=== PATIENT | male | born 1960 | race Caucasian/White ===

== ENCOUNTER 2017-03-10 16:06 | Emergency (ER) | payer MEDICAID ==
[~2017-03-10] VITALS: Ht 182.9 cm; Wt 81.6 kg
[2017-03-10] MEDS ORDERED: ELIQUIS5 MG PO (16:12)
[2017-03-10] MEDS ORDERED: METOPROLOL TART25 MG ORAL (16:12)
[2017-03-10] MEDS ORDERED: DIGOXIN ELIX0.125 MG GT (16:12)
[2017-03-10 16:39] VITALS: BP 112/60
[2017-03-10 16:42] LABS: EOSINOPHILS % (AUTO) 0.2 % (0.0-3.0); LYMPHOCYTES % (AUTO) 18.2 % (20.0-45.0); MEAN CORPUSCULAR HEMOGLOBIN 38.4 PG (27.0-31.0); MEAN CORPUSCULAR HGB CONC 35.2 G/DL (32.0-36.0); MEAN CORPUSCULAR VOLUME 109 FL (80-99); MEAN PLATELET VOLUME 7.2 FL (6.5-10.1); NEUTROPHILS % (AUTO) 67.6 % (45.0-75.0); PLATELET COUNT 247 K/UL (150-450); RED BLOOD COUNT 4.37 M/UL (4.70-6.10); RED CELL DISTRIBUTION WIDTH 10.9 % (11.6-14.8); WHITE BLOOD COUNT 8.7 K/UL (4.8-10.8)
[2017-03-10 17:00] LABS: ALANINE AMINOTRANSFERASE 113 U/L (3-41); ALBUMIN/GLOBULIN RATIO 1.2 (1.0-2.7); ANION GAP 15 (5-15); ASPARTATE AMINO TRANSFERASE 56 U/L (5-40); CALCIUM 9.3 mg/dL (8.6-10.2); CARBON DIOXIDE 26 mEQ/L (20-30); CHLORIDE 91 mEQ/L (98-107); CREATININE 0.9 mg/dL (0.7-1.2); GLOMERULAR FILTRATION RATE > 60 mL/min (>60); HEMOLYSIS 18; POTASSIUM 4.3 mEQ/L (3.4-4.9); SODIUM 132 mEQ/L (135-145); TOTAL PROTEIN 7.1 g/dL (6.6-8.7); TROPONIN I < 0.30 ng/mL (<=0.30)
[2017-03-10 17:08] LABS: INR 1.1 (0.9-1.1); PROTHROMBIN TIME 11.7 SEC (9.30-11.50)
[2017-03-10 17:10] LABS: CKMB < 1.5 ng/mL (< 6.7)
--- NOTE | 2017-03-10 17:22 | Diagnostic Imaging Report ---
Indication: Chest pain Technique: One view of the chest Comparison: none Findings: There is atelectasis at the right lung base. Lungs and pleural spaces are otherwise clear. There are left upper quadrant surgical clips. Heart size is normal Impression: Right basilar atelectasis No acute process
[2017-03-10] MEDS ORDERED: Acetaminophen 500mg (ES) tab ORAL ONE (17:30)
[2017-03-10 20:00] VITALS: BP 96/67
--- NOTE | 2017-03-10 20:01 | Emergency Room Report ---
History of Present Illness General Chief Complaint: Chest Pain Source: Patient Present Illness HPI This patient has a recent history of DVTs and PEs. He was seen at [facility] [place] last week and admitted. He was discharged from the hospital with a diagnosis of multiple PEs and on Eloquis. The patient states that he developed chest pain today. He states this was the first time he had been up and about. He states that while he was in the hospital he was not even allowed to get out of bed. He denies significant shortness of breath. He denies abdominal pain. He denies fever or chills. He denies nausea or vomiting. He has been achy all over and has a sharp pain that radiates to his neck. He has no other complaints. Allergies: Coded Allergies: No Known Allergies (Unverified , 03/10/17) Patient History Past Medical History: see triage record, HTN, HIV, other - PE, DVT Social History: Denies: alcohol use, drug use, smoking Reviewed Nursing Documentation: PMH: Agreed, PSxH: Agreed Nursing Documentation-PMH Past Medical History: No History, Except For Hx Cardiac Problems: Yes - HIV. Dig for rapid HR Hx Hypertension: Yes Hx COPD: Yes - PE Hx Neurological Problems: Yes - blood clot in left leg Review of Systems All Other Systems: negative except mentioned in HPI Physical Exam Vital Signs Date Time Temp Pulse Resp B/P Pulse Ox O2 Delivery O2 Flow Rate FiO2 03/10/17 16:02 98.2 96 16 112/60 95 Room Air Sp02 EP Interpretation: reviewed, normal General Appearance: no apparent distress, alert, GCS 15, non-toxic Head: normocephalic, atraumatic Eyes: bilateral eye PERRL, bilateral eye normal inspection ENT: hearing grossly normal, normal pharynx, no angioedema, normal voice Neck: full range of motion, supple/symm/no masses Respiratory: chest non-tender, lungs clear, normal breath sounds, speaking full sentences Cardiovascular #1: regular rate, rhythm, no edema Gastrointestinal: normal bowel sounds, non tender, soft, non-distended, no guarding, no rebound Rectal: deferred Musculoskeletal: back normal, gait/station normal, normal range of motion, non- tender Neurologic: alert, oriented x3, responsive, motor strength/tone normal, sensory intact, speech normal Psychiatric: judgement/insight normal, memory normal, mood/affect normal, no suicidal/homicidal ideation Skin: normal color, no rash, warm/dry, well hydrated Medical Decision Making Diagnostic Impression: Primary Impression: Chest pain Additional Impression: Pulmonary emboli ER Course This patient has known PEs. He did have recurrence of his chest pain. Therefore, I did obtain a CT of the chest. This does show multiple peripheral PEs. The patient has arty on treatment for this and this is arty known. There is no evidence of acute coronary syndrome or NE. The patient has a normal troponin. The patient has normal vital signs and there is no right heart strain on a CTA of the chest. Patient is without respiratory distress and has a normal SpO2. I did offer the patient admission to the hospital if he needed pain control, however, he declined this stating that he would rather be at home. At this time, the patient has known pulmonary embolism and is on treatment. No new medical condition is identified. The patient's given close return precautions and followup instructions. Labs Test 03/10/17 16:30 03/10/17 19:02 White Blood Count 8.7 K/UL (4.8-10.8) Red Blood Count 4.37 M/UL (4.70-6.10) Hemoglobin 16.8 G/DL (14.2-18.0) Hematocrit 47.7 % (42.0-52.0) Mean Corpuscular Volume 109 FL (80-99) Mean Corpuscular Hemoglobin 38.4 PG (27.0-31.0) Mean Corpuscular Hemoglobin Concent 35.2 G/DL (32.0-36.0) Red Cell Distribution Width 10.9 % (11.6-14.8) Platelet Count 247 K/UL (150-450) Mean Platelet Volume 7.2 FL (6.5-10.1) Neutrophils (%) (Auto) 67.6 % (45.0-75.0) Lymphocytes (%) (Auto) 18.2 % (20.0-45.0) Monocytes (%) (Auto) 12.0 % (1.0-10.0) Eosinophils (%) (Auto) 0.2 % (0.0-3.0) Basophils (%) (Auto) 2.0 % (0.0-2.0) Prothrombin Time 11.7 SEC (9.30-11.50) Prothromb Time International Ratio 1.1 (0.9-1.1) Activated Partial Thromboplast Time 37 SEC (23-33) Sodium Level 132 mEQ/L (135-145) Potassium Level 4.3 mEQ/L (3.4-4.9) Chloride Level 91 mEQ/L (98-107) Carbon Dioxide Level 26 mEQ/L (20-30) Anion Gap 15 (5-15) Blood Urea Nitrogen 19 mg/dL (7-23) Creatinine 0.9 mg/dL (0.7-1.2) Estimat Glomerular Filtration Rate > 60 mL/min (>60) Glucose Level 98 mg/dL (74-106) Calcium Level 9.3 mg/dL (8.6-10.2) Total Bilirubin 0.3 mg/dL (0.0-1.2) Aspartate Amino Transf (AST/SGOT) 56 U/L (5-40) Alanine Aminotransferase (ALT/SGPT) 113 U/L (3-41) Alkaline Phosphatase 44 U/L (40-129) Total Creatine Kinase 16 U/L (38-174) Creatine Kinase MB < 1.5 ng/mL (< 6.7) Creatine Kinase MB Relative Index Troponin I < 0.30 ng/mL (<=0.30) Total Protein 7.1 g/dL (6.6-8.7) Albumin 3.9 g/dL (3.5-5.2) Globulin 3.2 g/dL Albumin/Globulin Ratio 1.2 (1.0-2.7) EKG Diagnostic Results Rate: normal ST Segments: no acute changes Other Impression SR w/ shortened WA interval Rhythm Strip Diag. Results EP Interpretation: yes Rate: 90's Rhythm: NSR, no PVC's, no ectopy Chest X-Ray Diagnostic Results EP Interpretation: Yes Findings: no consolidation, no effusion, no pneumothorax, no acute cardiopulmonary disease Number of Views: 1 CT/MRI/US Diagnostic Results CT/MRI/US Diagnostic Results : Imaging Test Ordered: CTA chest Impression Bilateral PE with in the right upper lobe, right lower lobe and left upper lobe and lower lobe. See official report. Last Vital Signs Date Time Temp Pulse Resp B/P Pulse Ox O2 Delivery O2 Flow Rate FiO2 03/10/17 18:36 98.3 03/10/17 16:39 95 16 112/60 95 Room Air Disposition: HOME, SELF-CARE Condition: Stable Referrals: NON PHYSICIAN (PCP) MADDIE VOGT D.O. Mar 10, 2017 20:01
[2017-03-10] MEDS ORDERED: ACETAMINOPHEN-1 EAC1 ORAL (20:02)
[2017-03-10 20:03] LABS: APPEARANCE,URINE CLEAR; KETONES,URINE NEGATIVE (NEGATIVE); LEUKOCYTE ESTERASE ,URINE NEGATIVE (NEGATIVE); NITRITE,URINE NEGATIVE (NEGATIVE); PH,URINE 5 (4.5-8.0); PROTEIN,URINE NEGATIVE (NEGATIVE); UROBILINOGEN,URINE NORMAL MG/DL (0.0-1.0)
[2017-03-10 20:10] VITALS: BP 96/67
[2017-03-10 20:14] LABS: BACTERIA,URINE OCCASIONAL /HPF; RBC,URINE 0-2 /HPF (0 - 0); WBC,URINE 0-2 /HPF (0 - 0)
--- NOTE | 2017-03-11 09:50 | Diagnostic Imaging Report ---
Indications: Chest pain Technique: Continuous helical CT imaging of the thorax was performed with automatic exposure control, following bolus intravenous administration of nonionic iodine contrast, on a Siemens sensation [address] scanner. Axial images reconstructed at 3 mm slice thickness and 1.5 mm interval. Coronal and sagittal images were reconstructed at 3 mm slice thickness. Coronal and sagittal two-dimensional maximum intensity projection and three-dimensional volume-rendered images were reconstructed on a stand alone workstation. CTDI volume(s): 13, 25, 23 mGy Total DLP: 759 mGy-cm Findings: Comparison: None Multiple small low-attenuation filling defects are present throughout multiple first and second order upper and lower lobe branches of both pulmonary arteries. Central pulmonary arteries patent, well opacified, normal caliber. Right ventricle nonenlarged. Heart overall normal size. Minimal pericardial fluid/thickening. Thoracic aorta and great vessels are patent and well-opacified without significant plaquing, normal in caliber and configuration. No evidence of aneurysm, dissection, or leak. No mediastinal or hilar enlarged lymph nodes, other abnormal masses or fluid collections. Irregular pleural-based linear densities in both lung bases right greater than left. No pleural abnormalities. Chest wall soft tissues nonfocal. Liver enlarged, diffusely decreased attenuation, incompletely imaged. Multiple metallic densities in abdominal left upper quadrant. Normal-appearing spleen not identified. 6 cm circumscribed soft tissue mass in abdominal left upper quadrant adjacent to surgical clips, incompletely imaged. Disc marginal osteophytes scattered throughout thoracic spine. Impression: Bilateral pulmonary emboli. No evidence of acute right heart strain. Pulmonary bibasal subsegmental atelectasis, right greater than left Minimal pericardial effusion versus thickening, nonspecific Hepatomegaly with steatosis Suggestion of prior splenectomy. Adjacent mass in left upper quadrant is of uncertain significance and could represent residual spleen versus exophytic renal mass. Dedicated contrast-enhanced CT scan of the abdomen and pelvis recommended for further evaluation. Degenerative spondylosis This correlates with Dr. Urrutia's preliminary report. Critical results discussed by Dr. Urrutia with Dr. Gomes, physician, by telephone 03/10/2017 [id number]
--- NOTE | 2017-03-14 22:37 | Cardiology Report ---
APPROVED REPORT EKG Measurement Heart [id number] Sinus rhythm with short HI with premature supraventricular complexes Otherwise normal ECG
== END 2017-03-10 20:10 | disposition home or self-care (01) ==
LOC: EDBD 16:06 → EMR 16:56
DX: I26.99 Other pulmonary embolism without acute cor pulmonale (principal); R07.9 Chest pain, unspecified; I10 Essential (primary) hypertension; Z86.718 Personal history of other venous thrombosis and embolism; Z79.01 Long term (current) use of anticoagulants
CPT/HCPCS: 36415; 71010; 71275; 80053; 80300; 81003; 82550; 82553; 84484; 85025; 85610; 85730; 93005; 96374; 99284; Q9967

== ENCOUNTER 2017-03-18 14:22 | Emergency (ER) | payer MEDICAID ==
[~2017-03-18] VITALS: Ht 182.9 cm; Wt 77.6 kg
[~2017-03-18 14:22] MED LIST: ACETAMINOPHEN-1 EAC1 ORAL; DIGOXIN ELIX0.125 MG GT; ELIQUIS5 MG PO; METOPROLOL TART25 MG ORAL
[2017-03-18 15:02] VITALS: BP 120/74
--- NOTE | 2017-03-18 15:14 | Emergency Room Report ---
History of Present Illness General Chief Complaint: Syncope Source: Patient Present Illness HPI 56-year-old male presents ED for evaluation. Patient states that he was at his PMD office today for check up. When he left the office he felt dizzy and had to catch himself against the wall. No LOC. Patient states that he's been feeling sick and nauseous ever since he's been placed on Eliqus. Patient was admitted to [facility] last week for PE. Was on heparin drip. He was discharged on Eliquis. Patient states that he's been compliant with the medication but he has been feeling nauseous and weak since starting the medication. Patient was seen at PMD office today and was prescribed warfarin to take instead of Eliquis. Patient denies any chest pain or shortness of breath. Denies any blood in stool. No other aggravating or relieving factors. Denies any other associated symptoms Allergies: Coded Allergies: No Known Allergies (Unverified , 03/10/17) Patient History Past Medical History: HTN, other - PE Past Surgical History: none Pertinent Family History: none Social History: Denies: alcohol use, drug use, smoking Immunizations: UTD Reviewed Nursing Documentation: PMH: Agreed, PSxH: Agreed Nursing Documentation-PMH Past Medical History: No History, Except For Hx Cardiac Problems: Yes - HIV Hx Hypertension: Yes Hx COPD: Yes - PE Hx Neurological Problems: Yes - blood clot in left leg Review of Systems All Other Systems: negative except mentioned in HPI Physical Exam Vital Signs Date Time Temp Pulse Resp B/P Pulse Ox O2 Delivery O2 Flow Rate FiO2 03/18/17 14:29 98.2 99 16 133/84 100 Room Air Sp02 EP Interpretation: reviewed, normal General Appearance: no apparent distress, alert, GCS 15, non-toxic Head: normocephalic, atraumatic Eyes: bilateral eye PERRL, bilateral eye normal inspection ENT: hearing grossly normal, normal pharynx, no angioedema, normal voice Neck: full range of motion, supple/symm/no masses Respiratory: chest non-tender, lungs clear, normal breath sounds, speaking full sentences Cardiovascular #1: regular rate, rhythm, no edema Cardiovascular #2: 2+ carotid (R), 2+ carotid (L), 2+ radial (R), 2+ radial (L) , 2+ dorsalis pedis (R), 2+ dorsalis pedis (L) Gastrointestinal: normal bowel sounds, non tender, soft, non-distended, no guarding, no rebound Rectal: deferred Genitourinary: normal inspection, no CVA tenderness Musculoskeletal: back normal, gait/station normal, normal range of motion, non- tender Neurologic: alert, oriented x3, responsive, motor strength/tone normal, sensory intact, speech normal Psychiatric: judgement/insight normal, memory normal, mood/affect normal, no suicidal/homicidal ideation Reflexes: 3+ bicep (R), 3+ bicep (L), 3+ tricep (R), 3+ tricep (L), 3+ knee (R) , 3+ knee (L) Skin: normal color, no rash, warm/dry, well hydrated Lymphatic: no adenopathy Medical Decision Making Diagnostic Impression: Primary Impression: Dizziness ER Course Hospital Course 56-year-old male presents ED complaining of dizziness. Recently prescribed Eliquis after diagnosed for PE Differential diagnoses include: Rib fracture, NE/unstable angina, contusion, muscle strain Clinical course Patient placed on stretcher. After initial history and physical I ordered labs , EKG, zofran, IVFS labs reviewed- all electrolytes normal, troponins negative, no leukocytosis, hemoglobin/hematocrit stable, coags ok Reassurance given to patient. No chest pain or shortness of breath suggestive of PE at this time. Patient will stop the Eliquis and was prescribed Coumadin by PMD. Patient instructed to start Coumadin. Instructed on weekly INR checks I. I feel this is a highly complex case requiring extensive working including EKG/Rhythm strip, Xray/CT/US, Blood/urine lab work, repeat exams while in ED, and administration of strong opiates/narcotics for pain control, admission to hospital or close patient follow up. Diagnosis - dizziness Stable and discharged to home with Rx Zofran. stop eliquis. start coumadin. weekly INR checks. Instructed to followup with PMD. Return to ED if symptoms recur or worsen Labs Test 03/18/17 14:50 White Blood Count 8.7 K/UL (4.8-10.8) Red Blood Count 3.58 M/UL (4.70-6.10) Hemoglobin 13.3 G/DL (14.2-18.0) Hematocrit 38.4 % (42.0-52.0) Mean Corpuscular Volume 107 FL (80-99) Mean Corpuscular Hemoglobin 37.2 PG (27.0-31.0) Mean Corpuscular Hemoglobin Concent 34.6 G/DL (32.0-36.0) Red Cell Distribution Width 11.4 % (11.6-14.8) Platelet Count 362 K/UL (150-450) Mean Platelet Volume 6.8 FL (6.5-10.1) Neutrophils (%) (Auto) 55.0 % (45.0-75.0) Lymphocytes (%) (Auto) 33.0 % (20.0-45.0) Monocytes (%) (Auto) 10.8 % (1.0-10.0) Eosinophils (%) (Auto) 0.3 % (0.0-3.0) Basophils (%) (Auto) 0.9 % (0.0-2.0) Prothrombin Time 10.7 SEC (9.30-11.50) Prothromb Time International Ratio 1.1 (0.9-1.1) Activated Partial Thromboplast Time 27 SEC (23-33) Sodium Level 141 mEQ/L (135-145) Potassium Level 3.6 mEQ/L (3.4-4.9) Chloride Level 100 mEQ/L (98-107) Carbon Dioxide Level 24 mEQ/L (20-30) Anion Gap 17 (5-15) Blood Urea Nitrogen 12 mg/dL (7-23) Creatinine 0.7 mg/dL (0.7-1.2) Estimat Glomerular Filtration Rate > 60 mL/min (>60) Glucose Level 140 mg/dL (74-106) Calcium Level 9.6 mg/dL (8.6-10.2) Total Bilirubin 0.4 mg/dL (0.0-1.2) Aspartate Amino Transf (AST/SGOT) 29 U/L (5-40) Alanine Aminotransferase (ALT/SGPT) 69 U/L (3-41) Alkaline Phosphatase 44 U/L (40-129) Total Creatine Kinase 29 U/L (38-174) Creatine Kinase MB < 1.5 ng/mL (< 6.7) Creatine Kinase MB Relative Index Troponin I < 0.30 ng/mL (<=0.30) Total Protein 6.8 g/dL (6.6-8.7) Albumin 3.8 g/dL (3.5-5.2) Globulin 3.0 g/dL Albumin/Globulin Ratio 1.2 (1.0-2.7) Lipase 29 U/L (< 60) EKG Diagnostic Results Rate: normal Rhythm: NSR ST Segments: no acute changes ASA given to the pt in ED: No Rhythm Strip Diag. Results EP Interpretation: yes Rhythm: NSR, no PVC's, no ectopy Last Vital Signs Date Time Temp Pulse Resp B/P Pulse Ox O2 Delivery O2 Flow Rate FiO2 03/18/17 15:02 98.2 89 16 120/74 100 Room Air Status: improved Disposition: HOME, SELF-CARE Condition: Stable Scripts Ondansetron Odt* (ZOFRAN ODT*) 4 Mg Tab.rapdis 4 MG ORAL Q6H Y for Nausea & Vomiting, #30 TAB 0 Refills Prov: SIXTO BRAY M.D. 03/18/17 Referrals: NON PHYSICIAN (PCP) SIXTO BRAY M.D. Mar 18, 2017 15:14
[2017-03-18 15:18] LABS: BASOPHILS % (AUTO) 0.9 % (0.0-2.0); EOSINOPHILS % (AUTO) 0.3 % (0.0-3.0); MEAN CORPUSCULAR HEMOGLOBIN 37.2 PG (27.0-31.0); MEAN CORPUSCULAR HGB CONC 34.6 G/DL (32.0-36.0); MEAN CORPUSCULAR VOLUME 107 FL (80-99); MEAN PLATELET VOLUME 6.8 FL (6.5-10.1); MONOCYTES % (AUTO) 10.8 % (1.0-10.0); PLATELET COUNT 362 K/UL (150-450); RED BLOOD COUNT 3.58 M/UL (4.70-6.10); RED CELL DISTRIBUTION WIDTH 11.4 % (11.6-14.8); WHITE BLOOD COUNT 8.7 K/UL (4.8-10.8)
[2017-03-18 15:23] LABS: INR 1.1 (0.9-1.1); PROTHROMBIN TIME 10.7 SEC (9.30-11.50)
[2017-03-18 15:25] LABS: ALANINE AMINOTRANSFERASE 69 U/L (3-41); ALBUMIN/GLOBULIN RATIO 1.2 (1.0-2.7); ANION GAP 17 (5-15); ASPARTATE AMINO TRANSFERASE 29 U/L (5-40); CALCIUM 9.6 mg/dL (8.6-10.2); CARBON DIOXIDE 24 mEQ/L (20-30); CHLORIDE 100 mEQ/L (98-107); CREATININE 0.7 mg/dL (0.7-1.2); GLOMERULAR FILTRATION RATE > 60 mL/min (>60); HEMOLYSIS 5; LIPASE 29 U/L (< 60); POTASSIUM 3.6 mEQ/L (3.4-4.9); SODIUM 141 mEQ/L (135-145); TOTAL PROTEIN 6.8 g/dL (6.6-8.7); TROPONIN I < 0.30 ng/mL (<=0.30)
[2017-03-18 15:36] LABS: CKMB < 1.5 ng/mL (< 6.7)
[2017-03-18] MEDS ORDERED: ZOFRAN ODT4 MG ORAL (16:58)
[2017-03-18 17:31] VITALS: BP 121/72
[2017-03-18 17:32] VITALS: BP 121/72
== END 2017-03-18 17:34 | disposition home or self-care (01) ==
LOC: EMR 14:43
DX: R42 Dizziness and giddiness (principal); R11.0 Nausea; I10 Essential (primary) hypertension; Z86.711 Personal history of pulmonary embolism; Z79.01 Long term (current) use of anticoagulants; J44.9 Chronic obstructive pulmonary disease, unspecified
CPT/HCPCS: 36415; 80053; 82550; 82553; 83690; 84484; 85025; 85610; 85730; 93005; 96374; 96375; 99284; J2405

== ENCOUNTER 2017-03-29 17:10 | Inpatient (IN) | payer MEDICAID ==
[~2017-03-29] VITALS: Ht 180.3 cm; Wt 77.1 kg
[~2017-03-29 17:10] MED LIST changes: +ZOFRAN ODT4 MG ORAL
[2017-03-29 17:48] VITALS: BP 129/80
[2017-03-29 18:08] LABS: BASOPHILS % (AUTO) 1.2 % (0.0-2.0); EOSINOPHILS % (AUTO) 0.2 % (0.0-3.0); LYMPHOCYTES % (AUTO) 21.1 % (20.0-45.0); MEAN CORPUSCULAR HEMOGLOBIN 39.3 PG (27.0-31.0); MEAN CORPUSCULAR HGB CONC 36.7 G/DL (32.0-36.0); MEAN CORPUSCULAR VOLUME 107 FL (80-99); MEAN PLATELET VOLUME 7.4 FL (6.5-10.1); MONOCYTES % (AUTO) 13.8 % (1.0-10.0); NEUTROPHILS % (AUTO) 63.7 % (45.0-75.0); PLATELET COUNT 309 K/UL (150-450); RED BLOOD COUNT 3.52 M/UL (4.70-6.10); RED CELL DISTRIBUTION WIDTH 11.3 % (11.6-14.8); WHITE BLOOD COUNT 13.5 K/UL (4.8-10.8)
[2017-03-29 18:21] LABS: INR 1.5 (0.9-1.1); PROTHROMBIN TIME 15.7 SEC (9.30-11.50)
[2017-03-29 18:25] LABS: ALANINE AMINOTRANSFERASE 42 U/L (3-41); ALBUMIN/GLOBULIN RATIO 1.1 (1.0-2.7); ANION GAP 16 (5-15); ASPARTATE AMINO TRANSFERASE 16 U/L (5-40); CALCIUM 9.6 mg/dL (8.6-10.2); CARBON DIOXIDE 24 mEQ/L (20-30); CHLORIDE 95 mEQ/L (98-107); CREATININE 0.7 mg/dL (0.7-1.2); GLOMERULAR FILTRATION RATE > 60 mL/min (>60); HEMOLYSIS 7; POTASSIUM 3.8 mEQ/L (3.4-4.9); SODIUM 135 mEQ/L (135-145); TOTAL PROTEIN 7.6 g/dL (6.6-8.7); TROPONIN I < 0.30 ng/mL (<=0.30)
[2017-03-29 18:35] LABS: CKMB < 1.5 ng/mL (< 6.7)
[2017-03-29 19:25] VITALS: BP 128/82
[2017-03-29] MEDS ORDERED: WARFARIN SODIUM5 MG ORAL (20:08)
[2017-03-29] MEDS ORDERED: NORVIR100 MG ORAL (20:14)
[2017-03-29] MEDS ORDERED: Morphine Sulfate 4mg/ml Inj IVP ONE (20:15)
[2017-03-29] MEDS ORDERED: PREZISTA800 MG ORAL (20:16)
[2017-03-29] MEDS ORDERED: EPZICOM1 TAB ORAL (20:17)
[2017-03-29] MEDS ORDERED: ACETAMINOPHEN325 M1 ORAL (20:18)
[2017-03-29] MEDS ORDERED: Heparin 5000 units/ml inj IV ONE ×2 (20:45→21:15)
[2017-03-29] MEDS ORDERED: Heparin 25,000u/D5W 500ml 500 ML IV SCH ×3 (20:45→22:00)
[2017-03-29] MEDS ORDERED: Miralax 17gm pkt ORAL PRN (21:30)
[2017-03-29] MEDS ORDERED: LORazepam Inj 2mg/ml 1ml IV PRN (21:30)
[2017-03-29] MEDS ORDERED: Zolpidem 5mg tab ORAL PRN (21:30)
[2017-03-29] MEDS ORDERED: Mylanta II UD 30ml ORAL PRN (21:30)
[2017-03-29 21:34] VITALS: BP 132/87
--- NOTE | 2017-03-29 22:08 | Emergency Room Report ---
History of Present Illness General Chief Complaint: Dyspnea/Respdistress Source: Patient Present Illness HPI 56-year-old male referred to ED for evaluation. Patient is complaining of chest pain or shortness of breath since last night. Pain is sharp. Bilateral 10. mid-chest. Nonradiating. Notes shortness of breath. Denies fevers or chills or cough. Patient was recently diagnosed with PE and was hospitalized. Patient was initially on Eliquis but was unable to tolerate the medication. Patient was switched to Coumadin. Patient states his last INR check was 1.0. States he is compliant with the medication. Patient also notes increased swelling in both legs. No other aggravating or relieving factors. Denies any other associated symptioms Allergies: Coded Allergies: No Known Allergies (Unverified , 03/10/17) Patient History Past Medical History: HTN, HIV, other - PE, DVT Past Surgical History: none Pertinent Family History: none Social History: Denies: alcohol use, drug use, smoking Immunizations: UTD Reviewed Nursing Documentation: PMH: Agreed Nursing Documentation-PMH Hx Cardiac Problems: Yes - HIV Hx Hypertension: Yes Hx COPD: Yes - PE Hx Neurological Problems: Yes - blood clot in left leg Review of Systems All Other Systems: negative except mentioned in HPI Physical Exam Vital Signs Date Time Temp Pulse Resp B/P Pulse Ox O2 Delivery O2 Flow Rate FiO2 03/29/17 17:19 98.2 119 20 129/81 94 Room Air Sp02 EP Interpretation: reviewed, normal General Appearance: no apparent distress, alert, GCS 15, non-toxic Head: normocephalic, atraumatic Eyes: bilateral eye PERRL, bilateral eye normal inspection ENT: hearing grossly normal, normal pharynx, no angioedema, normal voice Neck: full range of motion, supple/symm/no masses Respiratory: chest non-tender, lungs clear, normal breath sounds, speaking full sentences Cardiovascular #1: regular rate, rhythm, no edema Cardiovascular #2: 2+ carotid (R), 2+ carotid (L), 2+ radial (R), 2+ radial (L) , 2+ dorsalis pedis (R), 2+ dorsalis pedis (L) Gastrointestinal: normal bowel sounds, non tender, soft, non-distended, no guarding, no rebound Rectal: deferred Genitourinary: normal inspection, no CVA tenderness Musculoskeletal: back normal, gait/station normal, normal range of motion, non- tender, calf tenderness - bilateral Neurologic: alert, oriented x3, responsive, motor strength/tone normal, sensory intact, speech normal Psychiatric: judgement/insight normal, memory normal, mood/affect normal, no suicidal/homicidal ideation Reflexes: 3+ bicep (R), 3+ bicep (L), 3+ tricep (R), 3+ tricep (L), 3+ knee (R) , 3+ knee (L) Skin: normal color, no rash, warm/dry, well hydrated Lymphatic: no adenopathy Medical Decision Making Diagnostic Impression: Primary Impression: DVT (deep venous thrombosis) Qualified Codes: I82.403 - Acute embolism and thrombosis of unspecified deep veins of lower extremity, bilateral Additional Impression: Pulmonary embolus, right ER Course Hospital Course 56-year-old male presents ED complaining of SOB. h/o PE Differential diagnoses include: ND/unstable angina, PE, bronchitis, asthma Clinical course Patient placed on stretcher. on cardiac surgeon. After initial history and physical I ordered labs, EKG, dopplers, CTA Chest labs reviewed- noted leukocytosis, hemoglobin/hematocrit stable, electrolytes ok , troponins negative, d-dimer elevated EKG - sinus tachycardia dopplers - bilateral DVTs noted CT chest - increased PE in RLL, elsewhere resolved Heparin bolus, drip given. Case discussed with Dr. Bradley and he agreed to accept the patient to his service for further care and support I. I feel this is a highly complex case requiring extensive working including EKG/Rhythm strip, Xray/CT/US, Blood/urine lab work, repeat exams while in ED, and administration of strong opiates/narcotics for pain control, admission to hospital or close patient follow up. Diagnosis - PE, DVT admitted to telemetry in serious condition Labs Test 03/29/17 17:54 White Blood Count 13.5 K/UL (4.8-10.8) Red Blood Count 3.52 M/UL (4.70-6.10) Hemoglobin 13.8 G/DL (14.2-18.0) Hematocrit 37.7 % (42.0-52.0) Mean Corpuscular Volume 107 FL (80-99) Mean Corpuscular Hemoglobin 39.3 PG (27.0-31.0) Mean Corpuscular Hemoglobin Concent 36.7 G/DL (32.0-36.0) Red Cell Distribution Width 11.3 % (11.6-14.8) Platelet Count 309 K/UL (150-450) Mean Platelet Volume 7.4 FL (6.5-10.1) Neutrophils (%) (Auto) 63.7 % (45.0-75.0) Lymphocytes (%) (Auto) 21.1 % (20.0-45.0) Monocytes (%) (Auto) 13.8 % (1.0-10.0) Eosinophils (%) (Auto) 0.2 % (0.0-3.0) Basophils (%) (Auto) 1.2 % (0.0-2.0) Prothrombin Time 15.7 SEC (9.30-11.50) Prothromb Time International Ratio 1.5 (0.9-1.1) Activated Partial Thromboplast Time 34 SEC (23-33) D-Dimer 1905 ng/mL (<500) Sodium Level 135 mEQ/L (135-145) Potassium Level 3.8 mEQ/L (3.4-4.9) Chloride Level 95 mEQ/L (98-107) Carbon Dioxide Level 24 mEQ/L (20-30) Anion Gap 16 (5-15) Blood Urea Nitrogen 12 mg/dL (7-23) Creatinine 0.7 mg/dL (0.7-1.2) Estimat Glomerular Filtration Rate > 60 mL/min (>60) Glucose Level 108 mg/dL (74-106) Calcium Level 9.6 mg/dL (8.6-10.2) Total Bilirubin 0.4 mg/dL (0.0-1.2) Aspartate Amino Transf (AST/SGOT) 16 U/L (5-40) Alanine Aminotransferase (ALT/SGPT) 42 U/L (3-41) Alkaline Phosphatase 43 U/L (40-129) Total Creatine Kinase 21 U/L (38-174) Creatine Kinase MB < 1.5 ng/mL (< 6.7) Creatine Kinase MB Relative Index 7.1 Troponin I < 0.30 ng/mL (<=0.30) Total Protein 7.6 g/dL (6.6-8.7) Albumin 4.0 g/dL (3.5-5.2) Globulin 3.6 g/dL Albumin/Globulin Ratio 1.1 (1.0-2.7) EKG Diagnostic Results Rate: tachycardiac Rhythm: NSR ST Segments: no acute changes ASA given to the pt in ED: No Rhythm Strip Diag. Results EP Interpretation: yes Rhythm: NSR, no PVC's, no ectopy CT/MRI/US Diagnostic Results CT/MRI/US Diagnostic Results : Imaging Test Ordered: CTA Chest, bilateral doppler Impression CTA CHest - increased PE in RLL. resolved elsewhere when compared to 03/10/17 CTA bilateral doppler US - bilateral DVT Last Vital Signs Date Time Temp Pulse Resp B/P Pulse Ox O2 Delivery O2 Flow Rate FiO2 03/29/17 20:57 98.0 03/29/17 19:25 100 25 128/82 95 Room Air Status: improved Disposition: ADMITTED INPATIENT Condition: Serious Referrals: [facility],REFERRING (PCP) SIXTO BRAY M.D. March 29, 2017 22:08
[2017-03-30] VITALS: BP 144/80
[2017-03-30] MEDS: Morphine Sulfate 2mg/ml Inj IVP PRN ×5 (02:08→23:08)
[2017-03-30 04:00] VITALS: BP 120/78
[2017-03-30 07:04] LABS: BASOPHILS % (AUTO) 0.6 % (0.0-2.0); EOSINOPHILS % (AUTO) 0.5 % (0.0-3.0); LYMPHOCYTES % (AUTO) 22.4 % (20.0-45.0); MEAN CORPUSCULAR HEMOGLOBIN 35.8 PG (27.0-31.0); MEAN CORPUSCULAR HGB CONC 34.1 G/DL (32.0-36.0); MEAN CORPUSCULAR VOLUME 105 FL (80-99); MEAN PLATELET VOLUME 7.9 FL (6.5-10.1); MONOCYTES % (AUTO) 13.2 % (1.0-10.0); NEUTROPHILS % (AUTO) 63.1 % (45.0-75.0); PLATELET COUNT 340 K/UL (150-450); RED BLOOD COUNT 3.52 M/UL (4.70-6.10); RED CELL DISTRIBUTION WIDTH 11.2 % (11.6-14.8); WHITE BLOOD COUNT 10.3 K/UL (4.8-10.8)
[2017-03-30 07:39] LABS: ALANINE AMINOTRANSFERASE 36 U/L (3-41); ANION GAP 15 (5-15); ASPARTATE AMINO TRANSFERASE 16 U/L (5-40); CALCIUM 9.5 mg/dL (8.6-10.2); CARBON DIOXIDE 26 mEQ/L (20-30); CHLORIDE 97 mEQ/L (98-107); CHOLESTEROL 284 mg/dL (< 200); CHOLESTEROL/HDL RATIO 4.4 (3.3-4.4); CREATININE 0.6 mg/dL (0.7-1.2); GLOMERULAR FILTRATION RATE > 60 mL/min (>60); HEMOLYSIS 2; LDL CHOLESTEROL (CALC.) 196 mg/dL (60-99); POTASSIUM 3.9 mEQ/L (3.4-4.9); SODIUM 138 mEQ/L (135-145); TOTAL PROTEIN 7.1 g/dL (6.6-8.7)
[2017-03-30] MEDS: Heparin 25,000u/D5W 500ml 500 ML IV SCH ×3 (07:42→14:52)
[2017-03-30] MEDS ORDERED: Heparin 5000 units/ml inj IV ONE (08:00)
[2017-03-30 08:15] VITALS: BP 131/81
[2017-03-30] MEDS ORDERED: Pneumococcal Vaccine 25mcg/0.5ml IM ONE (10:00)
[2017-03-30 12:18] VITALS: BP 120/74
--- NOTE | 2017-03-30 13:42 | History and Physical ---
History of Present Illness General Date patient seen: March 30, 2017 Reason for Hospitalization: Dyspnea/Respdistress Present Illness HPI 56-year-old male with hx of HIV recent DVT referred to ED for evaluation of chest pain and shortness of breath since last night. Patient was recently diagnosed with PE and was hospitalized. Patient was initially on Eliquis but was unable to tolerate the medication. Patient was switched to Coumadin. Patient states his last INR check was 1.0. States he is compliant with the medication. Patient also notes increased swelling in both legs. Allergies: Coded Allergies: No Known Allergies (Unverified , 03/10/17) Medication History Scheduled Darunavir Ethanolate (Prezista), 800 MG ORAL QPM, (Reported) Epzicom (Epzicom Tablet), 1 TAB ORAL QPM, (Reported) Ritonavir* (Norvir*), 100 MG ORAL QPM, (Reported) Warfarin Sod* (Warfarin Sod*), 5 MG ORAL DAILY, (Reported) Scheduled PRN Acetaminophen With Codeine (T#3) (Tylenol #3 Tab*), 1 TAB ORAL Q8H PRN for For Pain Acetaminophen* (Acetaminophen 325MG Tablet*), 325 MG ORAL Q4H PRN for For Pain, (Reported) Discontinued Medications Apixaban (Eliquis), 5 MG PO TWICE A DAY, (Reported) Discontinued Reason: Pt stopped taking med Digoxin (Digoxin), 0.125 MG GT DAILY, (Reported) Discontinued Reason: Pt stopped taking med Metoprolol Tartrate* (Metoprolol Tartrate*), 25 MG ORAL EVERY 12 HOURS, ( Reported) Discontinued Reason: Pt stopped taking med Ondansetron Odt* (Zofran Odt*), 4 MG ORAL Q6H PRN for Nausea & Vomiting Discontinued Reason: Pt stopped taking med Patient History Healthcare decision maker pt alert and oriented x4 Resuscitation status Full Code Advanced Directive on File Past Medical/Surgical History Past Medical/Surgical History: (1) DVT (deep venous thrombosis) (2) Pulmonary embolus, right Review of Systems All Other Systems: negative except mentioned in HPI Physical Exam General Appearance: WD/WN Lines, tubes and drains: peripheral HEENT: normocephalic, atraumatic Neck: non-tender, normal alignment Respiratory/Chest: chest wall non-tender, lungs clear Cardiovascular/Chest: normal peripheral pulses Abdomen: normal bowel sounds Genitourinary/Rectal: normal genital exam Extremities: normal range of motion Skin Exam: normal pigmentation 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 Last 24 Hour Vital Signs Date Time Temp Pulse Resp B/P Pulse Ox O2 Delivery O2 Flow Rate FiO2 03/30/17 12:18 97.7 95 20 120/74 96 Nasal Cannula 2.0 03/30/17 12:00 107 03/30/17 08:15 98.1 100 20 131/81 96 Room Air 2.0 03/30/17 08:00 97 03/30/17 04:00 97.8 91 19 120/78 93 Room Air 03/30/17 04:00 89 03/30/17 00:00 93 03/30/17 00:00 98.1 102 20 144/80 96 Room Air 03/29/17 21:43 98.0 104 25 132/87 95 Room Air 03/29/17 21:34 98.0 104 25 132/87 95 Room Air 03/29/17 20:57 98.0 03/29/17 19:25 98.0 100 25 128/82 95 Room Air 03/29/17 17:48 105 31 Room Air 03/29/17 17:48 98.0 105 31 129/80 96 Room Air 03/29/17 17:19 98.2 119 20 129/81 94 Room Air Intake and Output 03/29/17 03/30/17 19:00 07:00 Intake Total 0 ml 100 ml Output Total 350 ml Balance 0 ml -250 ml Intake Oral 0 ml 100 ml Output Urine Total 350 ml # Voids 1 Laboratory Tests Test 03/29/17 17:54 03/29/17 23:10 03/30/17 06:05 White Blood Count 13.5 K/UL (4.8-10.8) H 10.3 K/UL (4.8-10.8) Red Blood Count 3.52 M/UL (4.70-6.10) L 3.52 M/UL (4.70-6.10) L Hemoglobin 13.8 G/DL (14.2-18.0) L 12.6 G/DL (14.2-18.0) L Hematocrit 37.7 % (42.0-52.0) L 37.0 % (42.0-52.0) L Mean Corpuscular Volume 107 FL (80-99) H 105 FL (80-99) H Mean Corpuscular Hemoglobin 39.3 PG (27.0-31.0) H 35.8 PG (27.0-31.0) H Mean Corpuscular Hemoglobin Concent 36.7 G/DL (32.0-36.0) H 34.1 G/DL (32.0-36.0) Red Cell Distribution Width 11.3 % (11.6-14.8) L 11.2 % (11.6-14.8) L Platelet Count 309 K/UL (150-450) 340 K/UL (150-450) Mean Platelet Volume 7.4 FL (6.5-10.1) 7.9 FL (6.5-10.1) Neutrophils (%) (Auto) 63.7 % (45.0-75.0) 63.1 % (45.0-75.0) Lymphocytes (%) (Auto) 21.1 % (20.0-45.0) 22.4 % (20.0-45.0) Monocytes (%) (Auto) 13.8 % (1.0-10.0) H 13.2 % (1.0-10.0) H Eosinophils (%) (Auto) 0.2 % (0.0-3.0) 0.5 % (0.0-3.0) Basophils (%) (Auto) 1.2 % (0.0-2.0) 0.6 % (0.0-2.0) Prothrombin Time 15.7 SEC (9.30-11.50) H Prothromb Time International Ratio 1.5 (0.9-1.1) H Activated Partial Thromboplast Time 34 SEC (23-33) H 61 SEC (23-33) H 50 SEC (23-33) H D-Dimer 1905 ng/mL (<500) H Sodium Level 135 mEQ/L (135-145) 138 mEQ/L (135-145) Potassium Level 3.8 mEQ/L (3.4-4.9) 3.9 mEQ/L (3.4-4.9) Chloride Level 95 mEQ/L (98-107) L 97 mEQ/L (98-107) L Carbon Dioxide Level 24 mEQ/L (20-30) 26 mEQ/L (20-30) Anion Gap 16 (5-15) H 15 (5-15) Blood Urea Nitrogen 12 mg/dL (7-23) 10 mg/dL (7-23) Creatinine 0.7 mg/dL (0.7-1.2) 0.6 mg/dL (0.7-1.2) L Estimat Glomerular Filtration Rate > 60 mL/min (>60) > 60 mL/min (>60) Glucose Level 108 mg/dL (74-106) H 109 mg/dL (74-106) H Calcium Level 9.6 mg/dL (8.6-10.2) 9.5 mg/dL (8.6-10.2) Total Bilirubin 0.4 mg/dL (0.0-1.2) 0.5 mg/dL (0.0-1.2) Aspartate Amino Transf (AST/SGOT) 16 U/L (5-40) 16 U/L (5-40) Alanine Aminotransferase (ALT/SGPT) 42 U/L (3-41) H 36 U/L (3-41) Alkaline Phosphatase 43 U/L (40-129) 43 U/L (40-129) Total Creatine Kinase 21 U/L (38-174) L Creatine Kinase MB < 1.5 ng/mL (< 6.7) Creatine Kinase MB Relative Index 7.1 Troponin I < 0.30 ng/mL (<=0.30) Total Protein 7.6 g/dL (6.6-8.7) 7.1 g/dL (6.6-8.7) Albumin 4.0 g/dL (3.5-5.2) 3.7 g/dL (3.5-5.2) Globulin 3.6 g/dL 3.4 g/dL Albumin/Globulin Ratio 1.1 (1.0-2.7) 1.0 (1.0-2.7) Triglycerides Level 120 mg/dL (< 150) Cholesterol Level 284 mg/dL (< 200) H LDL Cholesterol 196 mg/dL (60-99) H HDL Cholesterol 64 mg/dL (> 60) H Cholesterol/HDL Ratio 4.4 (3.3-4.4) Height (Feet): 5 Height (Inches): 11.00 Weight (Pounds): 170 Medications Current Medications Medications (Trade) Dose Ordered Sig/Darron Route PRN Reason Start Time Stop Time Status Last Admin Dose Admin Acetaminophen (Tylenol) 650 mg Q4H PRN ORAL fever 03/29/17 21:30 04/28/17 21:29 Al Hydroxide/Mg Hydroxide (Mylanta II) 30 ml Q6H PRN ORAL dyspepsia 03/29/17 21:30 04/28/17 21:29 Dextrose STAT PRN IV Hypoglycemia 03/29/17 21:30 04/28/17 21:29 Heparin Sodium/ Dextrose (Heparin) 500 ml @ 33.929 mls/ hr adjust per protocol IV 03/30/17 07:06 04/28/17 21:59 03/30/17 08:36 Lorazepam (Ativan 2mg/ml 1ml) 0.5 mg Q4H PRN IV For Anxiety 03/29/17 21:30 04/05/17 21:29 Morphine Sulfate (Morphine Sulfate) 1 mg Q4H PRN IVP For Pain 4-10 03/29/17 21:30 04/05/17 21:29 03/30/17 06:54 Ondansetron HCl (Zofran) 4 mg Q6H PRN IVP Nausea & Vomiting 03/29/17 21:30 04/28/17 21:29 Patient Own Medication (Patient's Own Med) 1 ea QHS ORAL 03/30/17 21:00 04/29/17 20:59 Patient Own Medication (Patient's Own Med) 1 ea QHS ORAL 03/30/17 21:00 04/29/17 20:59 Patient Own Medication (Patient's Own Med) 1 ea QHS ORAL 03/30/17 21:00 04/29/17 20:59 Polyethylene Glycol (Miralax) 17 gm HSPRN PRN ORAL Constipation 03/29/17 21:30 04/28/17 21:29 Zolpidem Tartrate (Ambien) 5 mg HSPRN PRN ORAL Insomnia 03/29/17 21:30 04/28/17 21:29 Assessment/Plan Problem List: (1) Pulmonary embolus, right ICD Codes: I26.99 - Other pulmonary embolism without acute cor pulmonale SNOMED: 68709290, 13946322 (2) DVT (deep venous thrombosis) ICD Codes: I82.409 - Acute embolism and thrombosis of unspecified deep veins of unspecified lower extremity SNOMED: 257813026 Qualifiers: Qualified Codes: I82.403 - Acute embolism and thrombosis of unspecified deep veins of lower extremity, bilateral (3) Non-compliance ICD Codes: Z91.19 - Patient's noncompliance with other medical treatment and regimen SNOMED: 9221636 Assessment/Plan iv heparin, coumadin hematology evaluation pt/inr ANDRE DILLARD March 30, 2017 13:42
[2017-03-30 15:30] VITALS: BP 116/77
--- NOTE | 2017-03-30 16:23 | Cardiology Report ---
APPROVED REPORT EKG Measurement Heart [id number] Sinus tachycardia Otherwise normal ECG
--- NOTE | 2017-03-30 19:27 | Consultation ---
Consult Note Consult Note Hematology Consult Note DOS: 03/30/17 RFC: new dvt Req MD: Kirk Chief Complaint: Dyspnea/Respdistress ID 56-year-old male referred to ED for evaluation, has been complaining of chest pain since last night. Pain is sharp. Bilateral 10. mid-chest. Nonradiating. Notes shortness of breath. Denies fevers or chills or cough. Patient was recently diagnosed with PE and was hospitalized. Patient was initially on Eliquis but was unable to tolerate the medication. Patient was switched to Coumadin. Patient states his last INR check was 1.0. Here it is 1.5. States he is compliant with the medication. Patient also notes increased swelling in both legs. No other aggravating or relieving factors. Denies any other associated symptioms. CTA showed PE. Allergies: No Known Allergies (Unverified , 03/10/17) Past Medical History: HTN, HIV, other - PE, DVT Past Surgical History: none Pertinent Family History: none Social History: Denies: alcohol use, drug use, smoking Immunizations: UTd ROS: Constitutional: No fever, no chills, no night sweats, no fatigue Skin: No rashes, lumps, itchiness, dryness HEENT: No GUNTER, ear ache, visual changes, double vision, nosebleeds, sore throat, lumps, swollen glands Breasts: No lumps, pain, discharge Pulmonary: _+++ chest pain (now better) and sob Cardiovascular: No tightness, palpitations GI: No nausea, vomiting, diarrhea, melena, hematochezia, change in appetite, abdominal pain : No dysuria, frequency, urgency, urinary incontinence, foamy urine Musculoskeletal: No joint swelling or muscle pain, trauma, back pain Neurologic: No dizziness, fainting, seizures, changes in smell or taste Psychiatric: No nervousness, stress, or depression, anxiety, hallucinations Endocrine: No weight change, heat or cold intolerance, tremor, insomnia PE: Last 24 Hour Vital Signs Date Time Temp Pulse Resp B/P Pulse Ox O2 Delivery O2 Flow Rate FiO2 03/30/17 16:00 98 03/30/17 15:30 98.1 96 20 116/77 95 Nasal Cannula 2.0 03/30/17 12:18 97.7 95 20 120/74 96 Nasal Cannula 2.0 03/30/17 12:00 107 03/30/17 08:15 98.1 100 20 131/81 96 Room Air 2.0 03/30/17 08:00 97 03/30/17 04:00 97.8 91 19 120/78 93 Room Air 03/30/17 04:00 89 03/30/17 00:00 93 03/30/17 00:00 98.1 102 20 144/80 96 Room Air 03/29/17 21:43 98.0 104 25 132/87 95 Room Air 03/29/17 21:34 98.0 104 25 132/87 95 Room Air 03/29/17 20:57 98.0 03/29/17 19:25 98.0 100 25 128/82 95 Room Air General Appearance: no apparent distress Head: normocephalic, atraumatic ENT: normal pharynx, no angioedema Respiratory: chest non-tender, lungs clear Cardiovascular: regular rate, rhythm, no edema Gastrointestinal: normal bowel sounds, non tender, soft Genitourinary: normal inspection, no CVA tenderness Musculoskeletal: back normal, gait/station normal Neurologic: alert, oriented x3, responsive Skin: normal color, no rash, warm/dry Lymphatic: no adenopathY Labs: reviewed Imaging: reviewed and shows right lower extremity dvt Assessment: # DVT (deep venous thrombosis) - bilateral, new on the right side (existing on the left) - started on heparin gtt and coumadin # Pulmonary embolus, right - on anticoagulation # Coagulopathy - 2/2 coumadin # Anemia of chronic disease # SOB with a hx of new PE # Bronchitis # Asthma # Sinus tachycardia Recs: - Heparin drip given, goal PTT as per pharmacy. - Given that he was not therapeutic, start on coumadin - Goal INR 2-3 - Will send off for tumor markers - Consider a hypercoag w/u as an outpatient once acute dvt resolves - Imaging only if patient having symptoms - Have discussed with staff Michael Guy March 30, 2017 19:27
[2017-03-30 20:00] VITALS: BP 126/81
[2017-03-30] MEDS: EPZICOM ORAL SCH (21:08)
[2017-03-30] MEDS: NORVIR 100MG TAB ORAL SCH (21:09)
[2017-03-30] MEDS: PREZISTA 800 MG ORAL SCH (21:09)
[2017-03-30 21:34] LABS: INR 1.5 (0.9-1.1); PROTHROMBIN TIME 15.9 SEC (9.30-11.50)
[2017-03-30 21:44] LABS: PSA TOTAL 0.9 ng/mL (< 3.5)
[2017-03-30] MEDS ORDERED: Warfarin Sodium 5mg ORAL ONE (22:30)
[2017-03-31] VITALS: BP 117/73
[2017-03-31 04:00] VITALS: BP 127/77
[2017-03-31 04:43] LABS: INR 1.5 (0.9-1.1); PROTHROMBIN TIME 15.1 SEC (9.30-11.50)
[2017-03-31] MEDS: Heparin 25,000u/D5W 500ml 500 ML IV SCH (04:58)
[2017-03-31 08:00] VITALS: BP 123/72
--- NOTE | 2017-03-31 08:40 | Diagnostic Imaging Report ---
ndication: Shortness of breath chest pain, history of prior pulmonary embolus Technique: IV administration nonionic contrast. Spiral acquisitions obtained from the lung bases to the lung apices. Multiplanar and 3-D reconstructions were generated. Total dose length product 780 mGycm. CTDIvol(s) 12, 12, 25 mGy. Dose reduction achieved using automated exposure control Comparison: 03/10/2017 Findings: Reasonably demonstrated left lower lobe pulmonary artery serial bifurcation embolus is no longer evident. However, a more distal embolus is seen in the posterior basilar segmental branch and extending distally into subsegmental branches, not evident previously, presumed due to fragmentation and migration of the larger more proximal embolus evident previously. Filling defects are still seen in the distal main right lower lobe pulmonary artery and proximal segmental branches. Position of these has shifted somewhat, and the filling defects appear slightly larger. Tiny emboli are again demonstrated in the left upper lobe segmental branches. No definite new emboli demonstrated. Normal caliber pulmonary arteries. No evidence of right ventricular dilatation. Nonaneurysmal thoracic aorta without evidence of dissection.. Common origin of the right brachiocephalic, left common carotid artery-normal anatomic variant. Consolidation and atelectasis at the right lung base has increased. There are also increased basilar atelectatic changes on the left. Basilar compressive atelectatic changes persists on the right. No mediastinal or hilar mass or adenopathy. Normal heart size. No pericardial effusion. Visualized portions of the thyroid are unremarkable. No axillary or chest wall mass or adenopathy. The included upper abdominal anatomy demonstrate surgical clips in the left upper quadrant. Well-circumscribed 5.3 cm soft tissue mass is seen adjacent to the surgical clips, as previously. There is diffuse low-attenuation of the liver, consistent with hepatic steatosis. Impression: Increased pulmonary embolic volume right lower lobe since prior study of 03/10/2017. Uncertain as to whether this represents in situ propagation of the previous embolus or recurrent pulmonary embolus Decreased embolic volume in the right upper lobe and left lower lobe, since prior study, consistent with probable partial dissolution and fragmentation of previously demonstrated emboli. Increased basilar atelectatic changes as described Hepatic steatosis, also previously described Evidence of prior left upper quadrant surgery. Soft tissue density in this area could represent residual spleen, versus pathologic soft tissue mass. Correlation with surgical history is recommended This agrees with the preliminary interpretation provided overnight by Dr. Law The CT scanner at [facility] is accredited by the [employer] and the scans are performed using protocols designed to limit radiation exposure to as low as reasonably achievable to attain images of sufficient resolution adequate for diagnostic evaluation.
[2017-03-31 12:00] VITALS: BP 117/75
--- NOTE | 2017-03-31 15:08 | Diagnostic Imaging Report ---
APPROVED REPORT CPT Code: 86659 Present Symptoms Lower Extremity Pain: Bilateral Comments: Pt states P.E. and left leg acute DVT approx. 1 month ago. Past History DVT :Left Pulmonary Embolism RIGHT LEG: Venous imaging reveals acute thrombus in the popliteal vein. Imaging reveals patency of the common femoral, superficial femoral and calf veins. Doppler indicates normal spontaneous flow within these segments. Greater saphenous vein also within normal limits. LEFT LEG: Venous imaging reveals acute thrombus in the proximal superficial femoral and popliteal veins. Imaging also reveals acute thrombus in the posterior tibial veins. Imaging reveals patency of the common femoral vein. Imaging also reveals patency of the anterior tibial and peroneal veins. Doppler indicates normal spontaneous flow within these segments. Greater saphenous vein also within normal limits. Incidental finding: Right inguinal lymph node measuring 3.2 cm x 2.6 cm x [address] Zazueta was notified of abnormal results at 19:50 hrs.
[2017-03-31 16:00] VITALS: BP 119/53
[2017-03-31] MEDS ORDERED: Warfarin Sodium 5mg ORAL ONE (17:00)
--- NOTE | 2017-03-31 18:28 | Pulmonology Progress Note ---
Assessment/Plan Problems: (1) Pulmonary embolus, right (2) DVT (deep venous thrombosis) (3) Non-compliance Assessment/Plan continue coumadin Heparin ID evaluation for inguinal LN Subjective ROS Limited/Unobtainable: No Constitutional: Reports: no symptoms HEENT: Repors: no symptoms Respiratory: Reports: no symptoms Allergies: Coded Allergies: No Known Allergies (Unverified , 03/10/17) Objective Last 24 Hour Vital Signs Date Time Temp Pulse Resp B/P Pulse Ox O2 Delivery O2 Flow Rate FiO2 03/31/17 16:00 98.1 110 19 119/53 93 Room Air 03/31/17 12:00 109 03/31/17 12:00 97.7 83 18 117/75 93 Room Air 03/31/17 08:00 81 03/31/17 08:00 97.9 81 18 123/72 93 Room Air 03/31/17 04:00 78 03/31/17 04:00 97.4 89 21 127/77 95 Room Air 03/31/17 00:48 88 03/31/17 00:00 97.9 89 20 117/73 94 Room Air 03/30/17 20:00 98.6 102 21 126/81 94 Room Air 03/30/17 20:00 98 Intake and Output 03/30/17 03/31/17 19:00 07:00 Intake Total 737.742 ml 366.961 ml Output Total 300 ml Balance 737.742 ml 66.961 ml Intake Oral 360 ml IV Total 377.742 ml 366.961 ml Output Urine Total 300 ml # Voids 3 General Appearance: WD/WN HEENT: normocephalic, atraumatic Respiratory/Chest: chest wall non-tender, lungs clear Cardiovascular: normal peripheral pulses, normal rate Abdomen: normal bowel sounds, soft, non tender Genitourinary: normal external genitalia Skin: no rash 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 Lymphatic: no neck adenopathy Laboratory Tests 03/30/17 20:08: Prothrombin Time 15.9H, Prothromb Time International Ratio 1.5H 03/31/17 04:10: Prothrombin Time 15.1H, Prothromb Time International Ratio 1.5H, Activated Partial Thromboplast Time 100H 03/31/17 11:00: Activated Partial Thromboplast Time 65H 03/31/17 15:00: Stool Occult Blood [Pending] Current Medications Medications (Trade) Dose Ordered Sig/Darron Route PRN Reason Start Time Stop Time Status Last Admin Dose Admin Acetaminophen (Tylenol) 650 mg Q4H PRN ORAL fever 03/29/17 21:30 04/28/17 21:29 Al Hydroxide/Mg Hydroxide (Mylanta II) 30 ml Q6H PRN ORAL dyspepsia 03/29/17 21:30 04/28/17 21:29 Dextrose (Dextrose 50%) STAT PRN IV Hypoglycemia 03/29/17 21:30 04/28/17 21:29 Heparin Sodium/ Dextrose (Heparin) 500 ml @ 30.844 mls/ hr adjust per protocol IV 03/31/17 04:51 04/28/17 21:59 03/31/17 04:58 Lorazepam (Ativan 2mg/ml 1ml) 0.5 mg Q4H PRN IV For Anxiety 03/29/17 21:30 04/05/17 21:29 Morphine Sulfate (Morphine Sulfate) 1 mg Q4H PRN IVP For Pain 4-03/29/17 21:30 04/05/17 21:29 03/30/17 23:08 Ondansetron HCl (Zofran) 4 mg Q6H PRN IVP Nausea & Vomiting 03/29/17 21:30 04/28/17 21:29 Patient Own Medication (Patient's Own Med) 1 ea QHS ORAL 03/30/17 21:00 04/29/17 20:59 03/30/17 21:08 Patient Own Medication (Patient's Own Med) 1 ea QHS ORAL 03/30/17 21:00 04/29/17 20:59 03/30/17 21:09 Patient Own Medication (Patient's Own Med) 1 ea QHS ORAL 03/30/17 21:00 04/29/17 20:59 03/30/17 21:09 Polyethylene Glycol (Miralax) 17 gm HSPRN PRN ORAL Constipation 03/29/17 21:30 04/28/17 21:29 Warfarin Sodium 1 ea 1 ea DAILY PRN MISC Per rx protocol 03/30/17 19:15 04/29/17 19:14 Zolpidem Tartrate (Ambien) 5 mg HSPRN PRN ORAL Insomnia 03/29/17 21:30 04/28/17 21:29 ANDRE DILLARD March 31, 2017 18:28
[2017-03-31] MEDS: Morphine Sulfate 2mg/ml Inj IVP PRN (20:05)
[2017-03-31 20:25] VITALS: BP 131/77
[2017-03-31] MEDS: PREZISTA 800 MG ORAL SCH (21:25)
[2017-03-31] MEDS: NORVIR 100MG TAB ORAL SCH (21:25)
[2017-03-31] MEDS: EPZICOM ORAL SCH (21:25)
[2017-04-01] VITALS: BP 118/72
[2017-04-01 04:00] VITALS: BP 114/78
[2017-04-01 08:40] LABS: INR 1.5 (0.9-1.1); PROTHROMBIN TIME 15.9 SEC (9.30-11.50)
[2017-04-01 08:42] VITALS: BP 120/60
[2017-04-01 12:03] VITALS: BP 118/87
[2017-04-01] MEDS: Morphine Sulfate 2mg/ml Inj IVP PRN ×2 (12:31→20:28)
--- NOTE | 2017-04-01 14:03 | Pulmonology Progress Note ---
Assessment/Plan Problems: (1) Pulmonary embolus, right (2) DVT (deep venous thrombosis) (3) Non-compliance Assessment/Plan continue coumadin Heparin ID evaluation for inguinal LN pending Subjective ROS Limited/Unobtainable: No Constitutional: Reports: no symptoms HEENT: Repors: no symptoms Respiratory: Reports: no symptoms Allergies: Coded Allergies: No Known Allergies (Unverified , 03/10/17) Objective Last 24 Hour Vital Signs Date Time Temp Pulse Resp B/P Pulse Ox O2 Delivery O2 Flow Rate FiO2 04/01/17 12:03 97.3 100 20 118/87 95 Room Air 04/01/17 08:42 97.5 104 20 120/60 94 Room Air 04/01/17 08:00 110 04/01/17 04:00 98.0 84 20 114/78 94 Room Air 04/01/17 04:00 79 04/01/17 00:00 91 04/01/17 00:00 97.9 98 20 118/72 94 Room Air 03/31/17 20:35 98.2 03/31/17 20:25 98.2 93 20 131/77 94 Room Air 03/31/17 20:00 111 03/31/17 16:00 98.1 110 19 119/53 93 Room Air 03/31/17 16:00 102 Intake and Output 03/31/17 04/01/17 19:00 07:00 Intake Total 710.8 ml 558.8 ml Output Total 900 ml 900 ml Balance -189.2 ml -341.2 ml Intake Oral 680 ml 220 ml IV Total 30.8 ml 338.8 ml Output Urine Total 900 ml 900 ml # Voids 2 3 # Bowel Movements 1 General Appearance: WD/WN HEENT: normocephalic Respiratory/Chest: chest wall non-tender, lungs clear Cardiovascular: normal peripheral pulses, normal rate Abdomen: normal bowel sounds, soft, non tender Extremities: no cyanosis Skin: no rash 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 Complete 03/30/17 02:30 Rectum VRE Culture - Final NO VANCOMYCIN RESISTANT ENTEROCOCCUS ... Complete Laboratory Tests 03/31/17 15:00: Stool Occult Blood Negative 04/01/17 05:30: Prothrombin Time 15.9H, Prothromb Time International Ratio 1.5H, CA 125 Antigen [Pending] Current Medications Medications (Trade) Dose Ordered Sig/Darron Route PRN Reason Start Time Stop Time Status Last Admin Dose Admin Acetaminophen (Tylenol) 650 mg Q4H PRN ORAL fever 03/29/17 21:30 04/28/17 21:29 Al Hydroxide/Mg Hydroxide (Mylanta II) 30 ml Q6H PRN ORAL dyspepsia 03/29/17 21:30 04/28/17 21:29 Dextrose (Dextrose 50%) STAT PRN IV Hypoglycemia 03/29/17 21:30 04/28/17 21:29 Heparin Sodium/ Dextrose (Heparin) 500 ml @ 30.844 mls/ hr adjust per protocol IV 03/31/17 04:51 04/28/17 21:59 03/31/17 04:58 Lorazepam (Ativan 2mg/ml 1ml) 0.5 mg Q4H PRN IV For Anxiety 03/29/17 21:30 04/05/17 21:29 Morphine Sulfate (Morphine Sulfate) 1 mg Q4H PRN IVP For Pain 4-10 03/29/17 21:30 04/05/17 21:29 04/01/17 12:31 Ondansetron HCl (Zofran) 4 mg Q6H PRN IVP Nausea & Vomiting 03/29/17 21:30 04/28/17 21:29 Patient Own Medication (Patient's Own Med) 1 ea QHS ORAL 03/30/17 21:00 04/29/17 20:59 03/31/17 21:25 Patient Own Medication (Patient's Own Med) 1 ea QHS ORAL 03/30/17 21:00 04/29/17 20:59 03/31/17 21:25 Patient Own Medication (Patient's Own Med) 1 ea QHS ORAL 03/30/17 21:00 04/29/17 20:59 03/31/17 21:25 Polyethylene Glycol (Miralax) 17 gm HSPRN PRN ORAL Constipation 03/29/17 21:30 04/28/17 21:29 Warfarin Sodium (Coumadin) 6 mg COUMADIN ORAL 04/01/17 17:00 04/01/17 17:01 Warfarin Sodium 1 ea 1 ea DAILY PRN MISC Per rx protocol 03/30/17 19:15 04/29/17 19:14 Zolpidem Tartrate (Ambien) 5 mg HSPRN PRN ORAL Insomnia 03/29/17 21:30 04/28/17 21:29 ANDRE DILLARD April 01, 2017 14:03
[2017-04-01] MEDS ORDERED: Heparin 5000 units/ml inj IV ONE (15:00)
[2017-04-01] MEDS: Heparin 25,000u/D5W 500ml 500 ML IV SCH (15:04)
[2017-04-01 16:11] VITALS: BP 132/82
--- NOTE | 2017-04-01 16:59 | General Progress Note ---
Assessment/Plan Assessment/Plan Assessment: # DVT (deep venous thrombosis) - bilateral, new on the right side (existing on the left) - continue on heparin gtt and coumadin, has not failed coumadin before , issue was that he was subtherapeutic # Pulmonary embolus, right - on anticoagulation # Coagulopathy - 2/2 coumadin # Anemia of chronic disease # SOB with a hx of new PE # Bronchitis # Asthma # Sinus tachycardia Recs: - Heparin drip given, goal PTT as per pharmacy. - Continue coumadin per Rx - Goal INR 2-3 - Will send off for tumor markers - Consider a hypercoag w/u as an outpatient once acute dvt resolves - Imaging only if patient having symptoms - Have discussed with staff Subjective Constitutional: Reports: no symptoms HEENT: Reports: mouth pain Respiratory: Reports: no symptoms Gastrointestinal/Abdominal: Reports: no symptoms Genitourinary: Reports: no symptoms Neurologic/Psychiatric: Reports: no symptoms Endocrine: Reports: no symptoms Hematologic/Lymphatic: Reports: anemia Allergies: Coded Allergies: No Known Allergies (Unverified , 03/10/17) Subjective stable, no events to report, on coumadin Objective Last 24 Hour Vital Signs Date Time Temp Pulse Resp B/P Pulse Ox O2 Delivery O2 Flow Rate FiO2 04/01/17 16:11 97.2 101 20 132/82 95 Room Air 04/01/17 12:03 97.3 100 20 118/87 95 Room Air 04/01/17 08:42 97.5 104 20 120/60 94 Room Air 04/01/17 08:00 110 04/01/17 04:00 98.0 84 20 114/78 94 Room Air 04/01/17 04:00 79 04/01/17 00:00 91 04/01/17 00:00 97.9 98 20 118/72 94 Room Air 03/31/17 20:35 98.2 03/31/17 20:25 98.2 93 20 131/77 94 Room Air 03/31/17 20:00 111 Intake and Output 03/31/17 04/01/17 19:00 07:00 Intake Total 710.8 ml 558.8 ml Output Total 900 ml 900 ml Balance -189.2 ml -341.2 ml Intake Oral 680 ml 220 ml IV Total 30.8 ml 338.8 ml Output Urine Total 900 ml 900 ml # Voids 2 3 # Bowel Movements 1 Laboratory Tests 04/01/17 05:30: Prothrombin Time 15.9H, Prothromb Time International Ratio 1.5H, [place] 125 Antigen [Pending] 04/01/17 14:17: Activated Partial Thromboplast Time 62H Height (Feet): 5 Height (Inches): 11.00 Weight (Pounds): 170 General Appearance: WD/WN EENT: TMs normal Neck: supple Cardiovascular: regular rhythm Respiratory/Chest: no respiratory distress Extremities: normal range of motion Edema: 1+ Leg (L), 1+ Leg (R) Edema: mild edema Neurologic: alert Skin: warm/dry Michael Guy April 01, 2017 16:59
[2017-04-01] MEDS ORDERED: Warfarin Sodium 3mg ORAL SCH (17:00)
[2017-04-01 20:00] VITALS: BP 129/79
[2017-04-01] MEDS: EPZICOM ORAL SCH (20:32)
[2017-04-01] MEDS: PREZISTA 800 MG ORAL SCH (21:26)
[2017-04-01] MEDS: NORVIR 100MG TAB ORAL SCH (21:26)
[2017-04-02] VITALS: BP 124/75
[2017-04-02] MEDS: Morphine Sulfate 2mg/ml Inj IVP PRN ×2 (01:30→19:27)
[2017-04-02 04:00] VITALS: BP 119/78
[2017-04-02 04:37] LABS: INR 1.7 (0.9-1.1); PROTHROMBIN TIME 17.9 SEC (9.30-11.50)
[2017-04-02] MEDS: Heparin 25,000u/D5W 500ml 500 ML IV SCH ×2 (07:48→23:00)
[2017-04-02 07:50] VITALS: BP 117/79
[2017-04-02 11:28] VITALS: BP 123/76
[2017-04-02 15:41] VITALS: BP 135/81
[2017-04-02] MEDS ORDERED: Warfarin Sodium 7.5mg ORAL ONE (17:00)
--- NOTE | 2017-04-02 17:16 | General Progress Note ---
Assessment/Plan Assessment/Plan Assessment/Plan Assessment: # DVT (deep venous thrombosis) - bilateral, new on the right side (existing on the left) - continue on heparin gtt and coumadin, has not failed coumadin before , issue was that he was subtherapeutic # Pulmonary embolus, right - on anticoagulation # Coagulopathy - 2/2 coumadin # Anemia of chronic disease # SOB with a hx of new PE # Bronchitis # Asthma # Sinus tachycardia Recs: - Heparin drip given, goal PTT as per pharmacy. - Continue coumadin per Rx - Goal INR 2-3 - Will send off for tumor markers - Consider a hypercoag w/u as an outpatient once acute dvt resolves - Imaging only if patient having symptoms - Have discussed with staff Kylie Guy M.D. Subjective Constitutional: Reports: no symptoms HEENT: Reports: no symptoms Cardiovascular: Reports: no symptoms Respiratory: Reports: no symptoms Gastrointestinal/Abdominal: Reports: no symptoms Genitourinary: Reports: no symptoms Neurologic/Psychiatric: Reports: no symptoms Endocrine: Reports: no symptoms Hematologic/Lymphatic: Reports: no symptoms Allergies: Coded Allergies: No Known Allergies (Unverified , 03/10/17) Objective Last 24 Hour Vital Signs Date Time Temp Pulse Resp B/P Pulse Ox O2 Delivery O2 Flow Rate FiO2 04/02/17 15:41 96.6 99 20 135/81 95 Room Air 04/02/17 11:28 97.7 90 20 123/76 93 Room Air 04/02/17 08:00 105 04/02/17 07:50 96.3 98 20 117/79 100 Room Air 04/02/17 04:00 78 04/02/17 04:00 97.7 95 20 119/78 95 04/02/17 00:00 87 04/02/17 00:00 97.2 95 20 124/75 95 Room Air 2.0 04/01/17 20:00 97.2 93 20 129/79 95 Room Air 2.0 04/01/17 20:00 98 Intake and Output 04/01/17 04/02/17 19:00 07:00 Intake Total 1181.787 ml 153.929 ml Output Total 650 ml Balance 1181.787 ml -496.071 ml Intake Oral 1080 ml 120 ml IV Total 101.787 ml 33.929 ml Output Urine Total 650 ml # Voids 3 # Bowel Movements 1 Laboratory Tests 04/01/17 20:53: Activated Partial Thromboplast Time 88H 04/02/17 04:15: Activated Partial Thromboplast Time 69H, Prothrombin Time 17.9H, Prothromb Time International Ratio 1.7H Height (Feet): 5 Height (Inches): 11.00 Weight (Pounds): 170 General Appearance: no apparent distress EENT: normal ENT inspection Neck: normal alignment Cardiovascular: regular rhythm Respiratory/Chest: normal breath sounds Abdomen: soft Pelvis: no masses Extremities: no calf tenderness Edema: no edema noted Arm (L), no edema noted Arm (R), no edema noted Leg (L), no edema noted Leg (R), no edema noted Pedal (L), no edema noted Pedal (R), no edema noted Generalized Edema: mild edema Neurologic: alert Skin: warm/dry Lymphatic: normal anterior cervical (L), normal anterior cervical (R), normal axillary (L), normal axillary (R), normal inguinal (L), normal inguinal (R), normal other, normal posterior cervical (L), normal posterior cervical (R), normal submandibular (L), normal submandibular (R), normal supraclavicular (L), normal supraclavicular (R) KYLIE GUY April 02, 2017 17:16
[2017-04-02 20:00] VITALS: BP 114/73
[2017-04-02] MEDS: EPZICOM ORAL SCH ×2 (21:00→21:48)
[2017-04-02] MEDS: PREZISTA 800 MG ORAL SCH ×2 (21:00→21:47)
[2017-04-02] MEDS: NORVIR 100MG TAB ORAL SCH ×2 (21:47→21:48)
--- NOTE | 2017-04-02 21:56 | Pulmonology Progress Note ---
Assessment/Plan Problems: (1) Pulmonary embolus, right (2) DVT (deep venous thrombosis) (3) Non-compliance Assessment/Plan continue coumadin Heparin ID evaluation for inguinal LN pending Subjective ROS Limited/Unobtainable: No Allergies: Coded Allergies: No Known Allergies (Unverified , 03/10/17) Objective Last 24 Hour Vital Signs Date Time Temp Pulse Resp B/P Pulse Ox O2 Delivery O2 Flow Rate FiO2 04/02/17 20:00 98.2 103 20 114/73 93 Room Air 04/02/17 16:00 86 04/02/17 15:41 96.6 99 20 135/81 95 Room Air 04/02/17 12:00 93 04/02/17 11:28 97.7 90 20 123/76 93 Room Air 04/02/17 08:00 105 04/02/17 07:50 96.3 98 20 117/79 100 Room Air 04/02/17 04:00 78 04/02/17 04:00 97.7 95 20 119/78 95 04/02/17 00:00 87 04/02/17 00:00 97.2 95 20 124/75 95 Room Air 2.0 Intake and Output 04/01/17 04/02/17 19:00 07:00 Intake Total 1181.787 ml 153.929 ml Output Total 650 ml Balance 1181.787 ml -496.071 ml Intake Oral 1080 ml 120 ml IV Total 101.787 ml 33.929 ml Output Urine Total 650 ml # Voids 3 # Bowel Movements 1 General Appearance: WD/WN HEENT: normocephalic Respiratory/Chest: chest wall non-tender Cardiovascular: normal rate Abdomen: normal bowel sounds Genitourinary: normal external genitalia Laboratory Tests 04/02/17 04:15: Prothrombin Time 17.9H, Prothromb Time International Ratio 1.7H, Activated Partial Thromboplast Time 69H Current Medications Medications (Trade) Dose Ordered Sig/Darron Route PRN Reason Start Time Stop Time Status Last Admin Dose Admin Acetaminophen (Tylenol) 650 mg Q4H PRN ORAL fever 03/29/17 21:30 04/28/17 21:29 Al Hydroxide/Mg Hydroxide (Mylanta II) 30 ml Q6H PRN ORAL dyspepsia 03/29/17 21:30 04/28/17 21:29 Dextrose (Dextrose 50%) STAT PRN IV Hypoglycemia 03/29/17 21:30 04/28/17 21:29 Heparin Sodium/ Dextrose (Heparin) 500 ml @ 33.929 mls/ hr adjust per protocol IV 03/31/17 04:51 04/28/17 21:59 04/02/17 07:48 Lorazepam (Ativan 2mg/ml 1ml) 0.5 mg Q4H PRN IV For Anxiety 03/29/17 21:30 04/05/17 21:29 Morphine Sulfate (Morphine Sulfate) 1 mg Q4H PRN IVP For Pain 4-10 03/29/17 21:30 04/05/17 21:29 04/02/17 19:27 Ondansetron HCl (Zofran) 4 mg Q6H PRN IVP Nausea & Vomiting 03/29/17 21:30 04/28/17 21:29 Patient Own Medication (Patient's Own Med) 1 ea QHS ORAL 03/30/17 21:00 04/29/17 20:59 04/02/17 21:00 Patient Own Medication (Patient's Own Med) 1 ea QHS ORAL 03/30/17 21:00 04/29/17 20:59 04/02/17 21:00 Patient Own Medication (Patient's Own Med) 1 ea QHS ORAL 03/30/17 21:00 04/29/17 20:59 04/02/17 21:48 Polyethylene Glycol (Miralax) 17 gm HSPRN PRN ORAL Constipation 03/29/17 21:30 04/28/17 21:29 Warfarin Sodium 1 ea 1 ea DAILY PRN MISC Per rx protocol 03/30/17 19:15 04/29/17 19:14 Zolpidem Tartrate (Ambien) 5 mg HSPRN PRN ORAL Insomnia 03/29/17 21:30 04/28/17 21:29 ANDRE DILLARD April 02, 2017 21:56
[2017-04-03 00:23] VITALS: BP 116/75
[2017-04-03 04:00] VITALS: BP 121/71
[2017-04-03 07:22] LABS: INR 1.8 (0.9-1.1); PROTHROMBIN TIME 18.3 SEC (9.30-11.50)
[2017-04-03 08:14] VITALS: BP 121/76
[2017-04-03] MEDS: Morphine Sulfate 2mg/ml Inj IVP PRN ×2 (08:35→13:55)
[2017-04-03 11:25] VITALS: BP 134/85
[2017-04-03] MEDS: Heparin 25,000u/D5W 500ml 500 ML IV SCH (13:57)
[2017-04-03 15:39] VITALS: BP 131/84
[2017-04-03] MEDS ORDERED: Warfarin Sodium 7.5mg ORAL SCH (17:00)
[2017-04-03] MEDS: Norco 10mg/325mg tab ORAL PRN ×2 (17:25→23:31)
[2017-04-03 20:40] VITALS: BP 123/89
[2017-04-03] MEDS: NORVIR 100MG TAB ORAL SCH (21:29)
[2017-04-03] MEDS: PREZISTA 800 MG ORAL SCH (21:29)
[2017-04-03] MEDS: EPZICOM ORAL SCH (21:29)
--- NOTE | 2017-04-03 22:38 | Pulmonology Progress Note ---
Assessment/Plan Problems: (1) Pulmonary embolus, right (2) DVT (deep venous thrombosis) (3) Non-compliance Assessment/Plan continue coumadin Heparin ID evaluation for inguinal LN pending Subjective ROS Limited/Unobtainable: No Allergies: Coded Allergies: No Known Allergies (Unverified , 03/10/17) Objective Last 24 Hour Vital Signs Date Time Temp Pulse Resp B/P Pulse Ox O2 Delivery O2 Flow Rate FiO2 04/03/17 20:40 98.6 102 21 123/89 98 Room Air 04/03/17 16:00 105 04/03/17 15:39 97.5 98 20 131/84 95 Room Air 04/03/17 12:00 91 04/03/17 11:25 96.9 96 20 134/85 94 Room Air 04/03/17 08:14 97.7 73 20 121/76 94 Room Air 04/03/17 08:00 83 04/03/17 04:00 84 04/03/17 04:00 98.1 87 19 121/71 95 Room Air 04/03/17 02:01 99 04/03/17 00:23 98.1 99 19 116/75 100 Room Air Intake and Output 04/02/17 04/03/17 19:00 07:00 Intake Total 1173.219 ml 273.929 ml Output Total 400 ml 900 ml Balance 773.219 ml -626.071 ml Intake Oral 800 ml 240 ml IV Total 373.219 ml 33.929 ml Output Urine Total 400 ml 900 ml # Voids 1 1 # Bowel Movements 1 HEENT: normocephalic, PERRL Respiratory/Chest: chest wall non-tender Genitourinary: normal external genitalia Skin: no rash Laboratory Tests 04/03/17 05:25: Prothrombin Time 18.3H, Prothromb Time International Ratio 1.8H, Activated Partial Thromboplast Time 91H Current Medications Medications (Trade) Dose Ordered Sig/Darron Route PRN Reason Start Time Stop Time Status Last Admin Dose Admin Acetaminophen (Tylenol) 650 mg Q4H PRN ORAL fever 03/29/17 21:30 04/28/17 21:29 Acetaminophen/ Hydrocodone Bitart ([place] 10/325) 1 ea Q6HR PRN ORAL Severe Pain (Pain Scale 7-10) 04/03/17 17:15 04/10/17 17:14 04/03/17 17:25 Al Hydroxide/Mg Hydroxide (Mylanta II) 30 ml Q6H PRN ORAL dyspepsia 03/29/17 21:30 04/28/17 21:29 Dextrose (Dextrose 50%) STAT PRN IV Hypoglycemia 03/29/17 21:30 04/28/17 21:29 Heparin Sodium/ Dextrose (Heparin) 500 ml @ 33.929 mls/ hr adjust per protocol IV 03/31/17 04:51 04/28/17 21:59 04/03/17 13:57 Lorazepam (Ativan 2mg/ml 1ml) 0.5 mg Q4H PRN IV For Anxiety 03/29/17 21:30 04/05/17 21:29 Morphine Sulfate (Morphine Sulfate) 1 mg Q4H PRN IVP For Pain 4-03/29/17 21:30 04/05/17 21:29 04/03/17 13:55 Ondansetron HCl (Zofran) 4 mg Q6H PRN IVP Nausea & Vomiting 03/29/17 21:30 04/28/17 21:29 Patient Own Medication (Patient's Own Med) 1 ea QHS ORAL 03/30/17 21:00 04/29/17 20:59 04/03/17 21:29 Patient Own Medication (Patient's Own Med) 1 ea QHS ORAL 03/30/17 21:00 04/29/17 20:59 04/03/17 21:29 Patient Own Medication (Patient's Own Med) 1 ea QHS ORAL 03/30/17 21:00 04/29/17 20:59 04/03/17 21:29 Polyethylene Glycol (Miralax) 17 gm HSPRN PRN ORAL Constipation 03/29/17 21:30 04/28/17 21:29 Warfarin Sodium 1 ea 1 ea DAILY PRN MISC Per rx protocol 03/30/17 19:15 04/29/17 19:14 Zolpidem Tartrate (Ambien) 5 mg HSPRN PRN ORAL Insomnia 03/29/17 21:30 04/28/17 21:29 ANDRE DILLARD April 03, 2017 22:38
[2017-04-04 00:14] VITALS: BP 132/90
--- NOTE | 2017-04-04 00:19 | General Progress Note ---
Assessment/Plan Assessment/Plan Assessment/Plan Assessment: # DVT (deep venous thrombosis) - bilateral, new on the right side (existing on the left) - continue on heparin gtt and coumadin, has not failed coumadin before , issue was that he was subtherapeutic # Pulmonary embolus, right - on anticoagulation # Coagulopathy - 2/2 coumadin # Anemia of chronic disease # SOB with a hx of new PE # Bronchitis # Asthma # Sinus tachycardia Recs: - Heparin drip given, goal PTT as per pharmacy. - Continue coumadin per Rx - Goal INR 2-3 - Will send off for tumor markers - Consider a hypercoag w/u as an outpatient once acute dvt resolves - Imaging only if patient having symptoms - Have discussed with staff Kylie Guy M.D. Subjective Constitutional: Reports: no symptoms HEENT: Reports: no symptoms Cardiovascular: Reports: no symptoms Respiratory: Reports: no symptoms Gastrointestinal/Abdominal: Reports: no symptoms Genitourinary: Reports: no symptoms Neurologic/Psychiatric: Reports: no symptoms Endocrine: Reports: no symptoms Hematologic/Lymphatic: Reports: no symptoms Allergies: Coded Allergies: No Known Allergies (Unverified , 03/10/17) Objective Last 24 Hour Vital Signs Date Time Temp Pulse Resp B/P Pulse Ox O2 Delivery O2 Flow Rate FiO2 04/04/17 00:14 98.2 92 20 132/90 94 Room Air 04/03/17 20:40 98.6 102 21 123/89 98 Room Air 04/03/17 20:00 93 04/03/17 16:00 105 04/03/17 15:39 97.5 98 20 131/84 95 Room Air 04/03/17 12:00 91 04/03/17 11:25 96.9 96 20 134/85 94 Room Air 04/03/17 08:14 97.7 73 20 121/76 94 Room Air 04/03/17 08:00 83 04/03/17 04:00 84 04/03/17 04:00 98.1 87 19 121/71 95 Room Air 04/03/17 02:01 99 04/03/17 00:23 98.1 99 19 116/75 100 Room Air Intake and Output 04/03/17 04/04/17 19:00 07:00 Intake Total 1159.290 ml Balance 1159.290 ml Intake Oral 820 ml IV Total 339.290 ml # Voids 1 Laboratory Tests 04/03/17 05:25: Prothrombin Time 18.3H, Prothromb Time International Ratio 1.8H, Activated Partial Thromboplast Time 91H Height (Feet): 5 Height (Inches): 11.00 Weight (Pounds): 170 General Appearance: no apparent distress Neck: supple Cardiovascular: regular rhythm Respiratory/Chest: lungs clear Extremities: non-tender Edema: no edema noted Arm (L), no edema noted Arm (R), no edema noted Leg (L), no edema noted Leg (R), no edema noted Pedal (L), no edema noted Pedal (R), no edema noted Generalized KYLIE GUY April 04, 2017 00:18
[2017-04-04 04:14] VITALS: BP 112/69
[2017-04-04] MEDS: Norco 10mg/325mg tab ORAL PRN (06:28)
[2017-04-04 06:36] LABS: INR 2.1 (0.9-1.1)
[2017-04-04 06:37] LABS: PROTHROMBIN TIME 21.7 SEC (9.30-11.50)
[2017-04-04 06:39] LABS: PARTIAL THROMBOPLASTIN TIME > 150 SEC (23-33)
[2017-04-04] MEDS ORDERED: Heparin 25,000u/D5W 500ml 500 ML IV SCH (07:50)
[2017-04-04 08:00] VITALS: BP 141/86
[2017-04-04 12:13] VITALS: BP 129/70
--- NOTE | 2017-04-04 15:16 | Pulmonology Progress Note ---
Assessment/Plan Problems: (1) Pulmonary embolus, right (2) DVT (deep venous thrombosis) (3) Non-compliance Assessment/Plan continue coumadin Heparin ID evaluation for inguinal LN pending INR therapeutic now dc home Subjective ROS Limited/Unobtainable: No Allergies: Coded Allergies: No Known Allergies (Unverified , 03/10/17) Objective Last 24 Hour Vital Signs Date Time Temp Pulse Resp B/P Pulse Ox O2 Delivery O2 Flow Rate FiO2 04/04/17 12:13 97.2 107 20 129/70 Room Air 04/04/17 12:00 108 04/04/17 08:00 96.6 109 20 141/86 95 Room Air 04/04/17 08:00 122 04/04/17 04:14 98.5 105 21 112/69 98 Room Air 04/04/17 04:00 101 04/04/17 00:14 98.2 92 20 132/90 94 Room Air 04/04/17 00:00 83 04/03/17 20:40 98.6 102 21 123/89 98 Room Air 04/03/17 20:00 93 04/03/17 16:00 105 04/03/17 15:39 97.5 98 20 131/84 95 Room Air Intake and Output 04/03/17 04/04/17 19:00 07:00 Intake Total 1159.290 ml 373.219 ml Balance 1159.290 ml 373.219 ml Intake Oral 820 ml IV Total 339.290 ml 373.219 ml # Voids 1 1 General Appearance: WD/WN HEENT: normocephalic, atraumatic Respiratory/Chest: chest wall non-tender, lungs clear Cardiovascular: normal peripheral pulses, normal rate Abdomen: normal bowel sounds, soft, non tender Genitourinary: normal external genitalia Extremities: no cyanosis Skin: no lesions 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, no motor/sensory deficits Lymphatic: no neck adenopathy Laboratory Tests 04/04/17 04:10: Prothrombin Time 21.7H, Prothromb Time International Ratio 2.1H, Activated Partial Thromboplast Time > 150*H 04/04/17 14:40: Activated Partial Thromboplast Time [Pending] Current Medications Medications (Trade) Dose Ordered Sig/Darron Route PRN Reason Start Time Stop Time Status Last Admin Dose Admin Acetaminophen (Tylenol) 650 mg Q4H PRN ORAL fever 03/29/17 21:30 04/28/17 21:29 Acetaminophen/ Hydrocodone Bitart 1 ea 1 ea Q6HR PRN ORAL Severe Pain (Pain Scale 7-10) 04/03/17 17:15 04/10/17 17:14 04/04/17 06:28 Al Hydroxide/Mg Hydroxide (Mylanta II) 30 ml Q6H PRN ORAL dyspepsia 03/29/17 21:30 04/28/17 21:29 Dextrose (Dextrose 50%) STAT PRN IV Hypoglycemia 03/29/17 21:30 04/28/17 21:29 Heparin Sodium/ Dextrose (Heparin) 500 ml @ 27.76 mls/ hr adjust per protocol IV 04/04/17 07:50 05/04/17 07:49 04/04/17 08:07 Lorazepam (Ativan 2mg/ml 1ml) 0.5 mg Q4H PRN IV For Anxiety 03/29/17 21:30 04/05/17 21:29 Morphine Sulfate (Morphine Sulfate) 1 mg Q4H PRN IVP For Pain 4-10 03/29/17 21:30 04/05/17 21:29 04/03/17 13:55 Ondansetron HCl (Zofran) 4 mg Q6H PRN IVP Nausea & Vomiting 03/29/17 21:30 04/28/17 21:29 Patient Own Medication (Patient's Own Med) 1 ea QHS ORAL 03/30/17 21:00 04/29/17 20:59 04/03/17 21:29 Patient Own Medication (Patient's Own Med) 1 ea QHS ORAL 03/30/17 21:00 04/29/17 20:59 04/03/17 21:29 Patient Own Medication (Patient's Own Med) 1 ea QHS ORAL 03/30/17 21:00 04/29/17 20:59 04/03/17 21:29 Polyethylene Glycol (Miralax) 17 gm HSPRN PRN ORAL Constipation 03/29/17 21:30 04/28/17 21:29 Warfarin Sodium (Coumadin per pharmacy) 1 ea DAILY PRN MISC Per rx protocol 03/30/17 19:15 04/29/17 19:14 Warfarin Sodium (Coumadin) 7.5 mg COUMADIN ORAL 04/04/17 17:00 04/09/17 16:59 Zolpidem Tartrate (Ambien) 5 mg HSPRN PRN ORAL Insomnia 03/29/17 21:30 04/28/17 21:29 ANDRE DILLARD April 04, 2017 15:16
[2017-04-04] MEDS ORDERED: COUMADIN7.5 MG ORAL (15:24)
[2017-04-04 16:05] VITALS: BP 128/83
[2017-04-04] MEDS ORDERED: Warfarin Sodium 7.5mg ORAL SCH (17:00)
--- NOTE | 2017-04-04 20:10 | General Progress Note ---
Assessment/Plan Assessment/Plan Assessment: # DVT (deep venous thrombosis) - bilateral, new on the right side (existing on the left) - continue on coumadin, is at goal, has not failed coumadin before, issue was that he was subtherapeutic # Pulmonary embolus, right - on anticoagulation # Coagulopathy - 2/2 coumadin # Anemia of chronic disease # SOB with a hx of new PE # Bronchitis # Asthma # Sinus tachycardia Recs: - Heparin drip d/c today - Continue coumadin per Rx - Goal INR 2-3 - Will send off for tumor markers - Consider a hypercoag w/u as an outpatient once acute dvt resolves - Imaging only if patient having symptoms - Have discussed with staff Subjective Constitutional: Reports: no symptoms HEENT: Reports: no symptoms Cardiovascular: Reports: no symptoms Respiratory: Reports: no symptoms Gastrointestinal/Abdominal: Reports: poor appetite Genitourinary: Reports: no symptoms Neurologic/Psychiatric: Reports: no symptoms Endocrine: Reports: no symptoms Hematologic/Lymphatic: Reports: anemia Allergies: Coded Allergies: No Known Allergies (Unverified , 03/10/17) Subjective stable, no events to report, on coumadin, inr 2-3 Objective Last 24 Hour Vital Signs Date Time Temp Pulse Resp B/P Pulse Ox O2 Delivery O2 Flow Rate FiO2 04/04/17 16:05 98.1 111 22 128/83 95 04/04/17 12:13 97.2 107 20 129/70 Room Air 04/04/17 12:00 108 04/04/17 08:00 96.6 109 20 141/86 95 Room Air 04/04/17 08:00 122 04/04/17 04:14 98.5 105 21 112/69 98 Room Air 04/04/17 04:00 101 04/04/17 00:14 98.2 92 20 132/90 94 Room Air 04/04/17 00:00 83 04/03/17 20:40 98.6 102 21 123/89 98 Room Air Intake and Output 04/03/17 04/04/17 19:00 07:00 Intake Total 1159.290 ml 373.219 ml Balance 1159.290 ml 373.219 ml Intake Oral 820 ml IV Total 339.290 ml 373.219 ml # Voids 1 1 Laboratory Tests 04/04/17 04:10: Prothrombin Time 21.7H, Prothromb Time International Ratio 2.1H, Activated Partial Thromboplast Time > 150*H 04/04/17 14:40: Activated Partial Thromboplast Time 85H Height (Feet): 5 Height (Inches): 11.00 Weight (Pounds): 170 General Appearance: alert EENT: TMs normal Neck: supple Cardiovascular: normal rate Respiratory/Chest: lungs clear Abdomen: non tender Extremities: normal range of motion Edema: 1+ Leg (L), 1+ Leg (R) Edema: mild edema Neurologic: alert Michael Guy April 04, 2017 20:10
[2017-04-05] MEDS ORDERED: LIPITOR10 MG ORAL (12:15)
--- NOTE | 2017-04-05 12:24 | Discharge Summary ---
Discharge Summary Hospital Course Date of Admission March 29, 2017 at 20:31 Date of Discharge April 04, 2017 at 16:38 Admitting Diagnosis pulmonary embolism HPI Omid Shaw is a 56 year old male who was admitted on March 29, 2017 at 20:31 for Pulmonary Embolism Procedures dc summary #[id number] Discharge Medications New Medications: Atorvastatin Calcium* (Lipitor*) 10 Mg Tablet 10 MG ORAL BEDTIME, #30 TAB Warfarin Sod (Coumadin*) 7.5 Mg Tablet 7.5 MG ORAL COUMADIN for 30 Days, TAB Continued Medications: Acetaminophen With Codeine (T#3) (Tylenol #3 Tab*) Y Tab 1 TAB ORAL Q8H PRN for For Pain, #20 TAB Darunavir Ethanolate (Prezista) 800 Mg Tablet 800 MG ORAL QPM, TAB Epzicom (Epzicom Tablet) 1 Each Tablet 1 TAB ORAL QPM, TAB 0 Refills Ritonavir* (Norvir*) 100 Mg Capsule 100 MG ORAL QPM, CAP Discharge Condition Upon Discharge: stable Discharge Disposition Patient was discharged to Home (01) Discharge Diagnoses: Discharge Instructions Discharge Instructions Special Instructions I have been assigned to complete a D/C Summary on this account. I was not involved in the patient management Corry Landaverde NP ([facility]) April 05, 2017 12:24
--- NOTE | 2017-04-06 02:39 | Discharge Summary 2 SIG ---
DATE OF ADMISSION: 03/29/2017 DATE OF DISCHARGE: 04/04/2017 REASON FOR ADMISSION: 56-year-old male with a history of hypertension and human immunodeficiency virus as well as DVT and pulmonary emboli, presented to emergency room with complaints of shortness of breath and chest pain for one day. Pain was sharp, bilateral , located in mid chest, and nonradiating. No fever. No chills. No cough. The patient was recently diagnosed with PE and hospitalized for it. He was initially on Eliquis, but was unable to tolerate it and was switched to Coumadin. The patient reported last INR being- 1.0. The patient reported intermittent compliance with the medication. The patient noted increasing swelling in bilateral lower extremities. The patient undergone venous duplex of bilateral lower extremity, which showed acute right popliteal DVT and left superficial femoral and popliteal DVT. CT of the chest revealed increased pulmonary embolic volume in the right lower lobe; in-situ propagation of the previous emboli versus recurrent pulmonary emboli. Decreased embolic volume in the right upper lobe and left lower lobe since previous study consistent with probable partial dissolution and fragmentation of previously demonstrated emboli. Increased basilar atelectatic changes. Hepatic steatosis. The patient was given heparin bolus in the emergency room followed by starting a heparin drip. White blood count was elevated - 13.5. D-dimer was elevated - 1905. EKG revealed sinus tachycardia. Troponin was negative. INR - 1.5. There was an incidental finding of right inguinal lymph node on venous duplex. ADMITTING DIAGNOSES: 1. Right upper lobe pulmonary emboli. 2. Acute bilateral lower extremities deep venous thrombosis. 3. Noncompliance. 4. Hypertension. 5. Human immunodeficiency virus. HOSPITAL COURSE: The patient was admitted. The patient was on the heparin drip and Coumadin to bridge to the therapeutic INR. Supplemental oxygen and pulmonary toilet provided as needed. Pulse oximetry stable on room air. Pain management provided. GI prophylaxis provided. INR therapeutic on 04/04/2017 - 2.1 and heparin drip was discontinued. The patient was sent home on Coumadin. Follow up with the primary medical doctor to keep INR within 2 to 3 range. Patient was explained the importance to follow up with the blood work. Encouraged compliance with the medication. The patient was taking HAART therapy. The patient was on Epzicom and ritonavir. Lipid panel revealed elevated total cholesterol and elevated LDH, possibly related to antiretroviral therapy. The patient was educated on low-fat low cholesterol diet, and started on low dose of Lipitor. Follow up with the lipid panel in three months with the primary medical doctor. Resident Care Supervisor followed the patient during this admission. Resident Care Supervisor recommended hypercoagulability workup as outpatient, once acute DVT resolved. That was thoroughly explained to the patient. The patient was incidentally noted on the Venous Duplex scan to have right inguinal lymph node. The patient with a known history of human immunodeficiency virus. The patient needs to follow up with the ID doctor for further HAART medication regimen and follow up with the right inguinal lymph node. Prior to discharge, chest pain free. No shortness of breath. The patient was stable for discharge home and follow up with the primary medical doctor and ID doctor. DISCHARGE DIAGNOSES: 1. Right upper lobe pulmonary emboli. 2. Acute bilateral lower extremity deep venous thrombosis (right popliteal and left superficial femoral and popliteal). 3. Noncompliance. 4. Hypertension. 5. Human immunodeficiency virus status. 6. Right inguinal lymph nodes. 7. Hyperlipidemia. DISCHARGE MEDICATIONS: See medication reconciliation list. DISCHARGE INSTRUCTIONS: The patient was discharged home. FOLLOWUP: Follow up with the primary medical doctor. Poli Bradley M.D. I have been assigned to dictate discharge summary on this account and I was not involved in the patient's management. Corry Almeidanataly N.PJose DR: ALEXIA JOB#: [id number] CC: [email or web address]
== END 2017-04-04 16:38 | disposition home or self-care (01) | DRG 134 ==
LOC: EMR 17:46 → 2E 20:31 → EDBEDREQ 20:32
DX: I26.99 Other pulmonary embolism without acute cor pulmonale (principal); B20 Human immunodeficiency virus [HIV] disease; J40 Bronchitis, not specified as acute or chronic; J45.909 Unspecified asthma, uncomplicated; R00.0 Tachycardia, unspecified; Z79.01 Long term (current) use of anticoagulants; Z91.19 Patient's noncompliance with other medical treatment and regimen; E78.5 Hyperlipidemia, unspecified; I82.433 Acute embolism and thrombosis of popliteal vein, bilateral; I82.411 Acute embolism and thrombosis of right femoral vein; I10 Essential (primary) hypertension; D63.8 Anemia in other chronic diseases classified elsewhere
CPT/HCPCS: 36415; 71275; 80053; 80061; 82270; 82378; 82550; 82553; 84153; 84484; 85025; 85060; 85379; 85610; 85730; 86301; 86304; 87081; 90732; 93005; 93970; J2405